=== PATIENT | male | born 1960 | race Caucasian/White ===

== ENCOUNTER → 2016-07-02 | Outpatient (REF) | payer MEDICAID ==
[2016-07-02 14:10] LABS: FREE T4 0.98 NG/DL (0.76-1.46); TOTAL PROTEIN 6.9 GM/DL (6.4-8.2)
[2016-07-02 14:18] LABS: FOLATE > 24.0 NG/ML; VITAMIN B12 LEVEL 375 PG/ML
[2016-07-04 12:44] LABS: ALBUMIN 4.26 GM/DL (3.29-5.55); ALBUMIN % 61.8 % (55.8-66.1); GAMMA GLOBULIN % 14.6 % (11.1-18.8)
== END ==
LOC: M LABNEURO 12:57
PROVIDERS: ATTEND Psychiatry & Neurology Neurology
DX: E11.42 Type 2 diabetes mellitus with diabetic polyneuropathy (principal); G56.03 Carpal tunnel syndrome, bilateral upper limbs; R20.2 Paresthesia of skin

== ENCOUNTER 2016-07-31 12:51 | Inpatient (IN) | payer MEDICAID ==
[~2016-07-31] VITALS: Ht 162.6 cm; Wt 80.2 kg
[2016-07-31] MEDS ORDERED: SYMB16INH (13:26)
[2016-07-31] MEDS ORDERED: RANI1TAB6 (13:26)
[2016-07-31] MEDS ORDERED: CELE1CAP9 (13:26)
[2016-07-31] MEDS ORDERED: VENL150C43 (13:26)
[2016-07-31] MEDS ORDERED: ALPRTAB4 (13:26)
[2016-07-31] MEDS ORDERED: ARIP2TAB (13:26)
[2016-07-31] MEDS ORDERED: ALBU17IN (13:26)
[2016-07-31] MEDS ORDERED: PENC1CR (13:26)
[2016-07-31] MEDS ORDERED: ZOLP10TA2 (13:26)
[2016-07-31] MEDS ORDERED: PREG50CA (13:26)
[2016-07-31 14:01] LABS: MEAN CORPUSCULAR HEMOGLOBIN 33.3 pg (27.0-33.0); MEAN CORPUSCULAR HGB CONC 34.1 g/dl (32.0-36.5); MEAN CORPUSCULAR VOLUME 97.7 fl (80.0-96.0); RED CELL DISTRIBUTION WIDTH 13.9 % (11.5-14.5); WHITE BLOOD COUNT 6.8 K/mm3 (4.0-10.0)
[2016-07-31 14:23] LABS: METHADONE URINE NEGATIVE (NEGATIVE)
[2016-07-31 14:35] LABS: ALBUMIN 3.7 GM/DL (3.2-5.2); ALBUMIN/GLOBULIN RATIO 1.09 (1.00-1.93); ALKALINE PHOSPHATASE 77 U/L (45-117); ALT/SGPT 42 U/L (12-78); ANION GAP 11 MEQ/L (8-16); AST/SGOT 43 U/L (15-37); BILIRUBIN,DIRECT 0.1 MG/DL (0.0-0.2); BILIRUBIN,TOTAL 0.4 MG/DL (0.2-1.0); BLOOD UREA NITROGEN 11 MG/DL (7-18); CALCIUM LEVEL 9.2 MG/DL (8.5-10.1); CARBON DIOXIDE LEVEL 26 MEQ/L (21-32); CHLORIDE LEVEL 105 MEQ/L (98-107); CREATININE FOR GFR 0.84 MG/DL (0.70-1.30); GLOMERULAR FILTRATION RATE > 60.0 (>56); GLUCOSE, FASTING 99 MG/DL (70-105); POTASSIUM SERUM 3.9 MEQ/L (3.5-5.1); SODIUM LEVEL 142 MEQ/L (136-145); TOTAL PROTEIN 7.1 GM/DL (6.4-8.2)
[2016-07-31] MEDS ORDERED: ABIL2TAB2 PO (16:19)
[2016-07-31] MEDS ORDERED: CELE-19 PO (16:19)
[2016-07-31] MEDS ORDERED: RANI150T PO (16:19)
[2016-07-31] MEDS ORDERED: AMBI10TA PO (16:19)
[2016-07-31] MEDS ORDERED: ALPR0.5T3 PO (16:19)
[2016-07-31] MEDS ORDERED: VENL150C43 PO (16:19)
[2016-07-31] MEDS ORDERED: PREG50CA PO (16:19)
[2016-07-31] MEDS ORDERED: ALBU17IN INH (16:19)
[2016-07-31] MEDS ORDERED: VITMTA PO (16:19)
[2016-07-31] MEDS ORDERED: SYMB16INH INH (16:19)
[2016-07-31 17:04] VITALS: BP 140/95
[2016-07-31] MEDS ORDERED: MOM 30ML SUSPENSION UDC PO PRN (18:45)
[2016-07-31] MEDS ORDERED: ALBUTEROL 90 MCG/ACT 8GM HFA INHALER INH PRN (18:45)
[2016-07-31] MEDS ORDERED: MAALOX 30 ML SUSP *UDC PO PRN (18:45)
[2016-07-31] MEDS: FAMOTIDINE 20 MG TAB PO SCH (21:06)
[2016-07-31] MEDS: ALPRAZolam 0.5 MG TAB PO SCH (21:06)
[2016-07-31] MEDS: zolPIDEM TARTRATE 10MG TAB PO PRN (21:06)
[2016-07-31] MEDS: SYMBICORT 160/4.5MCG INHALER 6GM INH SCH (21:06)
[2016-07-31] MEDS: PREGABALIN 50 MG CAP (LYRICA) PO SCH (21:06)
[2016-08-01 06:40] VITALS: BP 132/77
[2016-08-01] MEDS: ARIPiprazole 2 MG TAB PO SCH (08:31)
[2016-08-01] MEDS: VENLAFAXINE **XR** 75MG CAPSULE PO SCH (08:31)
[2016-08-01] MEDS: ALPRAZolam 0.5 MG TAB PO SCH ×3 (08:31→17:24)
[2016-08-01] MEDS: CelecoXIB (CeleBREX) 100 MG CAP PO SCH (08:31)
[2016-08-01] MEDS: SYMBICORT 160/4.5MCG INHALER 6GM INH SCH ×2 (08:31→22:18)
[2016-08-01] MEDS: MULTIVITAMINS/MINERALS THERAP 1 TAB PO SCH (08:32)
[2016-08-01] MEDS: PREGABALIN 50 MG CAP (LYRICA) PO SCH ×3 (08:33→22:18)
[2016-08-01] MEDS: NICOTINE 21MG/24HR 1 EA TRANSDERMAL TD SCH (08:33)
[2016-08-01] MEDS ORDERED: VENLAFAXINE 37.5 MG TAB PO SCH (09:00)
--- NOTE | 2016-08-01 10:35 | HPEPDOC ---
Medical History and Physical Date of Admission Jul 31, 2016 at 16:45 History and Physical PCP: Dr Cantu ATTENDING: Dr. Canelo Silvestre HPI:56yoM admitted to [facility] for unspecified depressive disorder, being medically examined today. No acute medical complaints today. Denies any fevers, chills, weakness, fatigue, CHE, CP, SOB, cough, palpitations, abdominal pain, N/V/D or changes in bowel or bladder habits. PMHx: Impaired fasting glucose GERD Asthma Peripheral neuropathy Chronic low back pain History of alcohol use History of substance use History of prostate cancer PSHX: Vasectomy Prostatectomy 02/05 Right inguinal hernia SOCHX: Resides in: [facility] Marital Status: Kids: 2, 1 Employment: Unemployed Tobacco use: One pack per day ETOH: Denies Illicit Drugs: Reports history of heroin overdose 1 IV Drug Use: Denies Tattoos done unprofessionally: Denies FAMHX: Mother: Alive, history of hypertension, diabetes Father: Alive, hypertension, diabetes Siblings: Alive, well Children: Alive, well. One child related to muscular dystrophy. Unexpected deaths due to medical reasons: None. ROS: As noted in HPI, otherwise 11pt ROS of systems reviewed and remarkable for chronic low back pain. Patient states his pain has been adequately controlled. He has had MRI of the lumbosacral spine through neurology and has been referred to [facility] [place]. He states his appointment is in the near future. PE: GEN: 56yoM, appears stated age. Well-nourished, well developed. No acute distress. Alert and oriented x 3. Pleasant, interactive. HEENT: Normocephalic, atraumatic. Pupils are equal, round, and reactive to light. Extraocular movements are intact. No nystagmus appreciated. Sclera are nonicteric. Conjunctiva without injection. Nose midline. Nasal turbinates without bogginess. EACs both patent BL. TMs both visualized and fonseca with good cone of light, no bulging or erythema. No facial asymmetry. Moist mucous membranes. Dentition fair. Pharynx pink and moist, no cobblestoning. Neck supple , trachea midline. No lymphadenopathy or thyromegaly appreciated. CHEST: Regular rate and rhythm, +S1, +S2 LUNGS: Clear to auscultation bilaterally. No wheezes, rales, or rhonchi. Breathing appears symmetric and easy. Patient is speaking in full sentences. No accessory muscle use. ABD: Round, soft, non-tender, non-distended. +Bowel sounds throughout. No rebound or guarding. No costovertebral angle tenderness. EXT: Pulses 2+ bilaterally dorsalis pedis and radial. No lower extremity edema appreciated. SKIN: [place], dry, warm. Capillary refill <2sec. No rashes. NEURO: Alert and oriented x 3. Cranial nerves III-XII are intact. No focal deficits appreciated. EKG: pending. A&P: 56yoM admitted to [facility] for unspecified depressive disorder 1. Psych. Plan per Psychiatry. Obtain baseline EKG to assure the safety of psychiatric medications as they can prolong the QT interval. 2. Nicotine dependence. Patch available. 3. Chronic low back pain. Continue Celebrex 200 mg daily. Continue Lyrica 50 mg 3 times a day. Patient has an upcoming appointment with [facility] [place] for an opinion regarding his chronic low back pain. Patient does not feel he needs to see pain management at this time. He states pain is adequately controlled on his outpatient regimen. 4. Follow up with PCP on discharge. 5. Asthma. Continue Symbicort 2 puffs twice a day, albuterol 2 puffs every 4 hours as needed. 6. GERD. Continue Pepcid 20 mg daily. 7. History of IFG. Fasting blood sugar noted to be 99 on admission. Hemoglobin A1c 07/02/16 is noted to be 5.8. 8. Elevated TSH. Recheck TSH and free T4 in a.m. 9. Elevated AST. Recheck CMP in a.m. 10. 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 Vital Signs Vital Signs Label Value Date Time Patient Temperature 96.3 degrees F 08/01/16 0640 Temperature Source Tympanic 08/01/16 0640 Pulse 65 08/01/16 0640 Respiratory Rate 16 bpm 08/01/16 0640 Blood Pressure Assessment 132/77 (95) 08/01/16 0640 Bedside Pulse Oximetry 96 % 07/31/16 1704 Item Value Date Time Oxygen Delivery Method Room Air 07/31/16 1704 Laboratory Data Labs 24H Laboratory Tests 2 07/31/16 13:44: Urine Amphetamines Screen NEGATIVE, Urine Benzodiazepines Screen POSITIVEH, Urine Opiates Screen NEGATIVE, Urine Barbiturates Screen NEGATIVE, Urine Cannabinoids Screen NEGATIVE, Urine Cocaine Metabolite Screen NEGATIVE, Urine Methadone Screen NEGATIVE, Urine Phencyclidine Screen NEGATIVE 07/31/16 13:45: Acetaminophen Level < 2.0L, Aspartate Amino Transf (AST/SGOT) 43H, Alanine Aminotransferase (ALT/SGPT) 42, Alkaline Phosphatase 77, Total Bilirubin 0.4, Direct Bilirubin 0.1, Albumin 3.7, Albumin/Globulin Ratio 1.09, Anion Gap 11, Calcium Level 9.2, Ethyl Alcohol Level 0.003, Glomerular Filtration Rate > 60.0 , Salicylates Level 2.1L, Thyroid Stimulating Hormone (TSH) 4.710H, Total Protein 7.1 CBC/BMP Laboratory Tests 07/31/16 13:45 Red Blood Count 4.30, Mean Corpuscular Volume 97.7 H, Mean Corpuscular Hemoglobin 33.3 H, Mean Corpuscular Hemoglobin Concent 34.1, Red Cell Distribution Width 13.9 Home Medications Scheduled Alprazolam (Alprazolam) 0.5 Mg Tab 0.5 MG PO QID Aripiprazole (Abilify) 2 Mg Tab 2 MG PO DAILY Budesonide/Formoterol (Symbicort 160-4.5 Mcg/Act) 60 Puff/Inhaler Aers 2 PUFF INH BID Celecoxib (Celebrex) 200 Mg Cap 200 MG PO DAILY Multivitamins *[facility] STOCKED* (Thera M Plus *[facility] STOCKED*) 1 Tab Tab 1 TAB PO DAILY Pregabalin (Lyrica) 50 Mg Cap 50 MG PO TID Venlafaxine Hydrochloride (Venlafaxine HCl ER) 150 Mg Cap 150 MG PO DAILY Scheduled PRN Albuterol Sulfate (Ventolin Hfa) 200 Puff/8 Gm Aers 2 PUFF INH QID PRN PRN SHORTNESS OF BREATH Ranitidine HCl (Ranitidine HCl) 150 Mg Tab 1 TAB PO DAILY PRN PRN HEARTBURN/ INDIGESTION Zolpidem Tartrate (Ambien) 10 Mg Tab 10 MG PO QHS PRN PRN SLEEP Allergies Coded Allergies: No Known Allergies (Unverified , 07/31/16) Shonna Hobbs Aug 01, 2016 10:35
[2016-08-01 11:45] VITALS: BP 140/90
[2016-08-01 18:00] VITALS: BP 150/96
[2016-08-01] MEDS ORDERED: chlordiazePOXIDE 25 MG CAP PO PRN (19:15)
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
[2016-08-01] MEDS ORDERED: ALPRAZolam 0.5 MG TAB PO SCH ×2 (21:00→22:00)
[2016-08-01] MEDS: FAMOTIDINE 20 MG TAB PO SCH (22:18)
[2016-08-02 07:04] VITALS: BP 141/77
[2016-08-02 07:47] LABS: ALBUMIN 3.6 GM/DL (3.2-5.2); ALBUMIN/GLOBULIN RATIO 1.13 (1.00-1.93); ALKALINE PHOSPHATASE 78 U/L (45-117); ALT/SGPT 41 U/L (12-78); ANION GAP 9 MEQ/L (8-16); AST/SGOT 32 U/L (15-37); BILIRUBIN,TOTAL 0.5 MG/DL (0.2-1.0); BLOOD UREA NITROGEN 13 MG/DL (7-18); CALCIUM LEVEL 8.6 MG/DL (8.5-10.1); CARBON DIOXIDE LEVEL 26 MEQ/L (21-32); CHLORIDE LEVEL 106 MEQ/L (98-107); CREATININE FOR GFR 0.85 MG/DL (0.70-1.30); FREE T4 0.79 NG/DL (0.76-1.46); GLOMERULAR FILTRATION RATE > 60.0 (>56); GLUCOSE, FASTING 106 MG/DL (70-105); POTASSIUM SERUM 4.3 MEQ/L (3.5-5.1); SODIUM LEVEL 141 MEQ/L (136-145); TOTAL PROTEIN 6.8 GM/DL (6.4-8.2)
[2016-08-02] MEDS: NICOTINE 21MG/24HR 1 EA TRANSDERMAL TD SCH (08:26)
[2016-08-02] MEDS: ARIPiprazole 2 MG TAB PO SCH (08:26)
[2016-08-02] MEDS: SYMBICORT 160/4.5MCG INHALER 6GM INH SCH ×2 (08:26→21:04)
[2016-08-02] MEDS: clonazePAM 1 MG TAB PO SCH ×4 (08:26→21:04)
[2016-08-02] MEDS: VENLAFAXINE **XR** 75MG CAPSULE PO SCH (08:27)
[2016-08-02] MEDS: MULTIVITAMINS/MINERALS THERAP 1 TAB PO SCH (08:27)
[2016-08-02] MEDS: CelecoXIB (CeleBREX) 100 MG CAP PO SCH (08:27)
[2016-08-02] MEDS: PREGABALIN 50 MG CAP (LYRICA) PO SCH ×3 (08:27→21:04)
[2016-08-02] MEDS ORDERED: chlordiazePOXIDE 25 MG CAP PO SCH (09:00)
[2016-08-02 11:30] VITALS: BP 142/84
--- NOTE | 2016-08-02 14:26 | ECGEPIP ---
Stationary ECG Study [facility] Test Date: 2016-08-01 Pat Name: CARLITA SAVAGE Department: Room: [place] [address] Gender: M Refuge Manager: LOIDA : 1960 Requested By: Shonna Hobbs Order Number: [id number] Reading MD: Madai Parnell Measurements Intervals [place] Rate: 68 P: 61 OK: 174 QRS: 90 QRSD: 92 T: 69 QT: 396 QTc: 422 Interpretive Statements SINUS RHYTHM NO PRIOR Electronically Signed On 08-02-2016 14:25:46 EST by Madai Parnell
[2016-08-02 18:00] VITALS: BP 138/88
[2016-08-02] MEDS: FAMOTIDINE 20 MG TAB PO SCH (21:04)
[2016-08-02] MEDS: zolPIDEM TARTRATE 10MG TAB PO PRN (21:04)
[2016-08-03 06:49] VITALS: BP 130/80
[2016-08-03] MEDS: SYMBICORT 160/4.5MCG INHALER 6GM INH SCH ×2 (08:22→20:24)
[2016-08-03] MEDS: PREGABALIN 50 MG CAP (LYRICA) PO SCH ×3 (08:22→20:24)
[2016-08-03] MEDS: NICOTINE 21MG/24HR 1 EA TRANSDERMAL TD SCH (08:22)
[2016-08-03] MEDS: clonazePAM 1 MG TAB PO SCH ×4 (08:22→20:24)
[2016-08-03] MEDS: ARIPiprazole 2 MG TAB PO SCH (08:23)
[2016-08-03] MEDS: VENLAFAXINE **XR** 75MG CAPSULE PO SCH (08:23)
[2016-08-03] MEDS: MULTIVITAMINS/MINERALS THERAP 1 TAB PO SCH (08:23)
[2016-08-03] MEDS: CelecoXIB (CeleBREX) 100 MG CAP PO SCH (08:23)
[2016-08-03 18:00] VITALS: BP 140/90
[2016-08-03] MEDS: QUEtiapine FUMARATE 50 MG TAB PO SCH (20:24)
[2016-08-03] MEDS: FAMOTIDINE 20 MG TAB PO SCH (20:24)
[2016-08-04 06:27] VITALS: BP 130/72
[2016-08-04] MEDS: MULTIVITAMINS/MINERALS THERAP 1 TAB PO SCH (08:10)
[2016-08-04] MEDS: SYMBICORT 160/4.5MCG INHALER 6GM INH SCH ×2 (08:10→21:02)
[2016-08-04] MEDS: CelecoXIB (CeleBREX) 100 MG CAP PO SCH (08:10)
[2016-08-04] MEDS: PREGABALIN 50 MG CAP (LYRICA) PO SCH ×3 (08:10→21:03)
[2016-08-04] MEDS: clonazePAM 1 MG TAB PO SCH ×3 (08:10→21:02)
[2016-08-04] MEDS: ARIPiprazole 2 MG TAB PO SCH (08:10)
[2016-08-04] MEDS: VENLAFAXINE **XR** 75MG CAPSULE PO SCH (08:10)
[2016-08-04] MEDS: NICOTINE 21MG/24HR 1 EA TRANSDERMAL TD SCH (08:11)
--- NOTE | 2016-08-04 12:06 | IPNPDOC ---
Subjective Date Seen The patient was seen on 08/04/16. Subjective Chief Complaint/HPI The patient is a 56-year-old male admitted with a reason for visit of Unspecified Depressive Disorder. Events since last encounter No new issues. Objective Physical Examination General Exam: Positive: Alert Eye Exam: Positive: PERRLA ENT Exam: Positive: Atraumatic Skin Exam: Positive: Nl turgor and temperature Psych Exam: Positive: Oriented x 3 Assessment /Plan Problems (1) Chronic low back pain Status: Chronic Response to Treatment: Stable Problem Text: * Pt remains on Celebrex 200mg daily * Lyrica 50mg TID * [facility] accessed reference # [id number] RX as per Dr Frank #90 06/28/16. * Per pt pain is controlled on current regimen, pt states this again today. * Has appt with [facility] in near future for opinion re chronic LBP. * Attending provider requests Pain Mgmt consultation for opinion re his pain regimen. Clt pending. (2) Tobacco use Status: Chronic Problem Text: * nicoderm (3) Asthma Status: Chronic Response to Treatment: Stable Problem Text: * Symbicort * Albuterol prn. (4) Peripheral neuropathy Status: Chronic Response to Treatment: Stable Problem Text: * Controlled per pt with Lyrica at present dose. * Has tried Gabapentin in the past which he states was ineffective. Plan/VTE VTE Prophylaxis Ordered?: No (ambulatory) VS, I&O, 24H, Fishbone Vital Signs/I&O Vital Signs Date Time Temp Pulse Resp B/P Pulse Ox O2 Delivery O2 Flow Rate FiO2 08/04/16 06:27 96.4 65 16 130/72 07/31/16 17:04 96 Room Air Shonna Hobbs Aug 04, 2016 12:06
[2016-08-04] MEDS: ACETAMINOPHEN TAB 650MG DOSE (2X325MG) PO PRN ×2 (12:31→21:04)
--- NOTE | 2016-08-04 15:17 | IPNPDOC ---
[facility] Progress Note Progress Note DATE OF SERVICE: 08/04/16 HISTORY: Patient is voluntary admission, indicates he has had intermittent suicidal ideation since 2008 and has been struggling with depression and anxiety since 1990, notes symptoms were exacerbated by son's last week, notes today would've been son's birthday. Patient is currently active with a therapist and a prescriber through [facility] and was taking a medication regimen consisting of Abilify, Effexor XR, Xanax 4 times per day, Lyrica, and Ambien as needed for sleep, has notable history of medication noncompliance. Weekend provider changed Ambien to Seroquel for sleep, patient indicates that change is effective and prefers Seroquel. Xanax has been changed to Klonopin with taper in place and patient indicates taper is going "fine, no problems," remains in agreement with taper. Pain management consult was requested date of entry to evaluate patient's use of Lyrica. Patient indicates rest of current medication regimen remains effective and denies medication side effects. Patient reports current anxiety level of 3/10, depression 6/10 which she attributes to his son's recent and today being his birthdate, denies suicidal and homicidal ideation, denies audiovisual hallucinations, denies urge to engage in self-injurious behavior. Patient reports reduced irritability and impulsivity, states he feels his mood is "more level." Patient states he spoke with his ex- over the phone over weekend describing the conversation as "cordial," states he has been reading information on grief and men and depression. Patient has been visible, attending groups, and indicates it a programming has been helpful in the development of coping mechanisms, denies symptoms of craving or withdrawal, describes energy level as "still low," reports ongoing challenges with concentration and focus, describes his appetite is stable. Patient presents with no signs of acute distress at time of interaction. VITAL SIGNS: See below. NEW TEST RESULTS: No new results. Labs on admission indicated elevated MCV, MCH , AST, TSH. TSH recheck on 08/02/16 remains elevated, subclinical, PA has evaluated and is recommending outpatient follow up post discharge. Impaired fasting glucose, GERD, asthma, peripheral neuropathy, chronic low back pain, history of prostate cancer with prostatectomy, right inguinal hernia, vasectomy. UDS positive for benzodiazepines on admission 08/01/16 EKG SINUS RHYTHM NO PRIOR CURRENT MEDICATIONS: See below. MENTAL STATUS EXAMINATION: Patient is a 56-year-old male, father of 2 children, 1 recently , presents with improved personal hygiene, is dressed in own clothing, makes improved eye contact, ambulates with steady gait , appears stated age. Speech: Is of normal rate, rhythm, volume, spontaneous. Language skills are intact. Thought processes: Clear, goal-directed. Thought content: Rational, logical. Abstract reasoning: Appears intact Description of associations: Less tangential, remains easily redirected. Description of abnormal or psychotic thoughts: denies hallucinations, delusions , preoccupation with violence, homicidal or suicidal ideation, and obsessions]. Judgment: Limited, some improvement Insight: Limited, some improvement Orientation to time, place and person. Recent and remote memory: Appears intact Attention span and concentration: Limited. Language: Within normal limits. Fund of knowledge: Appears adequate. Mood: "Today would've been my son's birthday so that sad." Patient appears depressed, less anxious, no mood lability noted. Affect: Blunted, brightens 1 when talking about son, congruent with affect. DIAGNOSES: Major depressive disorder, recurrent, moderate, bereavement, rule out bipolar disorder, rule out ashley, rule out PTSD ASSESSMENT: Patient appears to be adjusting to unit, has been more visible, attending groups, engaging selectively but appropriately with peers and utilizing staff for support appropriately. Patient indicates he is satisfied with recent changes to medications and remains in agreement with Klonopin taper , denies any symptoms of the discomfort related to taper and denies medication side effects. Patient denies suicidal and homicidal ideation and verbalizes awareness of how to access supportive services on the unit if needed. Will continue to monitor patient's response to benzodiazepine taper and medications, monitor for medication side effects, and evaluate patient safety, resolution of suicidal ideation, and discharge readiness. When prepared for discharge patient states he would like to resume outpatient behavioral health services through [facility] for psychotherapy and medication management, adds he is also interested in a referral for [facility] housing and case management services. MANAGEMENT PLAN: Continue Klonopin taper, reduce Klonopin to 1 mg po TID. continue Seroquel 50 mg po hs, continue Effexor XR 150 mg po q am, continue Abilify 2 mg po q am Pain management consult requested to evaluate patient's use of Lyrica Maintain safety precautions Patient to attend groups and participate in unit programming to develop coping strategies Engage patient in discharge planning process and arrange meeting with support system to ensure safe discharge planning when appropriate Patient to follow up with PCM upon discharge TIME SPENT: 35 minutes. Vital Signs Vital Signs Date Time Temp Pulse Resp B/P Pulse Ox O2 Delivery O2 Flow Rate FiO2 08/04/16 06:27 96.4 65 16 130/72 07/31/16 17:04 96 Room Air Current Medications Current Medications Acetaminophen (Tylenol Tab) 650 mg Q6HP PRN PO HEADACHE or DISCOMFORT Last administered on 08/04/16 12:31; Start 07/31/16 at 18:45; Stop 08/30/16 at 18:44 Al Hydrox/Mg Hydrox/Simethicone (Mylanta) 30 ml Q4HP PRN PO HEARTBURN/ INDIGESTION; Start 07/31/16 at 18:45; Stop 08/30/16 at 18:44 Albuterol Sulfate (Proventil, Ventolin Hfa) 2 puff Q6HP PRN INH SHORTNESS OF BREATH; Start 07/31/16 at 18:45; Stop 08/30/16 at 18:44 Alprazolam (Xanax) 0.5 mg QID PO Last administered on 08/01/16 22:18; Start at 21:00; Stop 08/01/16 at 22:00; Status DC Alprazolam (Xanax) 0.5 mg QID PO ; Start 08/01/16 at 22:00; Stop 08/01/16 at 22: 00; Status DC Alprazolam (Xanax) 0.5 mg QID PO Last administered on 08/01/16 17:24; Start at 21:00; Stop 08/01/16 at 18:53; Status DC Aripiprazole (AbiLIFY) 2 mg DAILY PO Last administered on 08/04/16 08:10; Start 08/01/16 at 09:00; Stop 08/31/16 at 08:59 Budesonide/ Formoterol Fumarate (Symbicort 160/ 4.5mcg) 2 puff BID INH Last administered on 08/04/16 08:10; Start 07/31/16 at 21:00; Stop 08/30/16 at 20:59 Celecoxib (CeleBREX) 200 mg DAILY PO Last administered on 08/04/16 08:10; Start 08/01/16 at 09:00; Stop 08/31/16 at 08:59 Chlordiazepoxide (Librium) 25 mg TID PO ; Start 08/02/16 at 09:00; Stop at 09:00; Status DC Chlordiazepoxide (Librium) 25 mg TID PRN PO BENZO WITHDRAWAL; Start 08/01/16 at 19:15; Stop 08/01/16 at 19:48; Status DC Clonazepam (KlonoPIN) 1 mg QID PO Last administered on 08/04/16 12:29; Start 08/02/16 at 09:00; Stop 08/04/16 at 15:13; Status DC Clonazepam (KlonoPIN) 1 mg TID PO ; Start 08/04/16 at 21:00; Stop 08/11/16 at 20 :59 Famotidine (Pepcid) 20 mg QHS PO Last administered on 08/03/16 20:24; Start at 21:00; Stop 08/30/16 at 20:59 Home Med (Med Rec Complete!) ASDIRECTED XX ; Start 07/31/16 at 16:30; Stop at 16:30; Status DC Magnesium Hydroxide (Milk Of Magnesia) 30 ml DAILYPRN PRN PO CONSTIPATION; Start 07/31/16 at 18:45; Stop 08/30/16 at 18:44 Multivitamins (Theragram-M) 1 tab DAILY PO Last administered on 08/04/16 08:10 ; Start 08/01/16 at 09:00; Stop 08/31/16 at 08:59 Nicotine (Nicoderm Cq 21mg) 1 patch DAILY TD Last administered on 08/04/16 08: 11; Start 08/01/16 at 09:00; Stop 08/31/16 at 08:59 Pregabalin (Lyrica) 50 mg TID PO Last administered on 08/04/16 08:10; Start at 21:00; Stop 08/07/16 at 20:59 Quetiapine Fumarate (SEROquel) 50 mg QHS PO Last administered on 08/03/16 20: 24; Start 08/03/16 at 21:00; Stop 09/02/16 at 20:59 Venlafaxine HCl (Effexor Xr) 150 mg DAILY PO Last administered on 08:10; Start 08/01/16 at 09:00; Stop 08/31/16 at 08:59 Venlafaxine HCl (Effexor) 150 mg DAILY PO ; Start 08/01/16 at 09:00; Stop at 09:00; Status DC Zolpidem Tartrate (Ambien) 10 mg QHSP PRN PO INSOMNIA Last administered on 08/02 21:04; Start 07/31/16 at 18:45; Stop 08/02/16 at 22:14; Status DC Allergies Coded Allergies: No Known Allergies (Unverified , 07/31/16) Jyoti Shine Aug 04, 2016 15:17 Date Time Temp Pulse Resp B/P Pulse Ox O2 Delivery O2 Flow Rate FiO2 08/04/16 06:27 96.4 65 16 130/72 07/31/16 17:04 96 Room Air Current Medications Current Medications Acetaminophen (Tylenol Tab) 650 mg Q6HP PRN PO HEADACHE or DISCOMFORT Last administered on 08/04/16 12:31; Start 07/31/16 at 18:45; Stop 08/30/16 at 18:44 Al Hydrox/Mg Hydrox/Simethicone (Mylanta) 30 ml Q4HP PRN PO HEARTBURN/ INDIGESTION; Start 07/31/16 at 18:45; Stop 08/30/16 at 18:44 Albuterol Sulfate (Proventil, Ventolin Hfa) 2 puff Q6HP PRN INH SHORTNESS OF BREATH; Start 07/31/16 at 18:45; Stop 08/30/16 at 18:44 Alprazolam (Xanax) 0.5 mg QID PO Last administered on 08/01/16 22:18; Start at 21:00; Stop 08/01/16 at 22:00; Status DC Alprazolam (Xanax) 0.5 mg QID PO ; Start 08/01/16 at 22:00; Stop 08/01/16 at 22: 00; Status DC Alprazolam (Xanax) 0.5 mg QID PO Last administered on 08/01/16 17:24; Start at 21:00; Stop 08/01/16 at 18:53; Status DC Aripiprazole (AbiLIFY) 2 mg DAILY PO Last administered on 08/04/16 08:10; Start 08/01/16 at 09:00; Stop 08/31/16 at 08:59 Budesonide/ Formoterol Fumarate (Symbicort 160/ 4.5mcg) 2 puff BID INH Last administered on 08/04/16 08:10; Start 07/31/16 at 21:00; Stop 08/30/16 at 20:59 Celecoxib (CeleBREX) 200 mg DAILY PO Last administered on 08/04/16 08:10; Start 08/01/16 at 09:00; Stop 08/31/16 at 08:59 Chlordiazepoxide (Librium) 25 mg TID PO ; Start 08/02/16 at 09:00; Stop at 09:00; Status DC Chlordiazepoxide (Librium) 25 mg TID PRN PO BENZO WITHDRAWAL; Start 08/01/16 at 19:15; Stop 08/01/16 at 19:48; Status DC Clonazepam (KlonoPIN) 1 mg QID PO Last administered on 08/04/16 12:29; Start 08/02/16 at 09:00; Stop 08/04/16 at 15:13; Status DC Clonazepam (KlonoPIN) 1 mg TID PO ; Start 08/04/16 at 21:00; Stop 08/11/16 at 20 :59 Famotidine (Pepcid) 20 mg QHS PO Last administered on 08/03/16 20:24; Start at 21:00; Stop 08/30/16 at 20:59 Home Med (Med Rec Complete!) ASDIRECTED XX ; Start 07/31/16 at 16:30; Stop at 16:30; Status DC Magnesium Hydroxide (Milk Of Magnesia) 30 ml DAILYPRN PRN PO CONSTIPATION; Start 07/31/16 at 18:45; Stop 08/30/16 at 18:44 Multivitamins (Theragram-M) 1 tab DAILY PO Last administered on 08/04/16 08:10 ; Start 08/01/16 at 09:00; Stop 08/31/16 at 08:59 Nicotine (Nicoderm Cq 21mg) 1 patch DAILY TD Last administered on 08/04/16 08: 11; Start 08/01/16 at 09:00; Stop 08/31/16 at 08:59 Pregabalin (Lyrica) 50 mg TID PO Last administered on 08/04/16 08:10; Start at 21:00; Stop 08/07/16 at 20:59 Quetiapine Fumarate (SEROquel) 50 mg QHS PO Last administered on 08/03/16 20: 24; Start 08/03/16 at 21:00; Stop 09/02/16 at 20:59 Venlafaxine HCl (Effexor Xr) 150 mg DAILY PO Last administered on 08:10; Start 08/01/16 at 09:00; Stop 08/31/16 at 08:59 Venlafaxine HCl (Effexor) 150 mg DAILY PO ; Start 08/01/16 at 09:00; Stop at 09:00; Status DC Zolpidem Tartrate (Ambien) 10 mg QHSP PRN PO INSOMNIA Last administered on 08/02 21:04; Start 07/31/16 at 18:45; Stop 08/02/16 at 22:14; Status DC Allergies Coded Allergies: No Known Allergies (Unverified , 07/31/16) Jyoti Shine Aug 04, 2016 15:17 Current Medications Current Medications Acetaminophen (Tylenol Tab) 650 mg Q6HP PRN PO HEADACHE or DISCOMFORT Last administered on 08/04/16 12:31; Start 07/31/16 at 18:45; Stop 08/30/16 at 18:44 Al Hydrox/Mg Hydrox/Simethicone (Mylanta) 30 ml Q4HP PRN PO HEARTBURN/ INDIGESTION; Start 07/31/16 at 18:45; Stop 08/30/16 at 18:44 Albuterol Sulfate (Proventil, Ventolin Hfa) 2 puff Q6HP PRN INH SHORTNESS OF BREATH; Start 07/31/16 at 18:45; Stop 08/30/16 at 18:44 Alprazolam (Xanax) 0.5 mg QID PO Last administered on 08/01/16 22:18; Start at 21:00; Stop 08/01/16 at 22:00; Status DC Alprazolam (Xanax) 0.5 mg QID PO ; Start 08/01/16 at 22:00; Stop 08/01/16 at 22: 00; Status DC Alprazolam (Xanax) 0.5 mg QID PO Last administered on 08/01/16 17:24; Start at 21:00; Stop 08/01/16 at 18:53; Status DC Aripiprazole (AbiLIFY) 2 mg DAILY PO Last administered on 08/04/16 08:10; Start 08/01/16 at 09:00; Stop 08/31/16 at 08:59 Budesonide/ Formoterol Fumarate (Symbicort 160/ 4.5mcg) 2 puff BID INH Last administered on 08/04/16 08:10; Start 07/31/16 at 21:00; Stop 08/30/16 at 20:59 Celecoxib (CeleBREX) 200 mg DAILY PO Last administered on 08/04/16 08:10; Start 08/01/16 at 09:00; Stop 08/31/16 at 08:59 Chlordiazepoxide (Librium) 25 mg TID PO ; Start 08/02/16 at 09:00; Stop at 09:00; Status DC Chlordiazepoxide (Librium) 25 mg TID PRN PO BENZO WITHDRAWAL; Start 08/01/16 at 19:15; Stop 08/01/16 at 19:48; Status DC Clonazepam (KlonoPIN) 1 mg QID PO Last administered on 08/04/16 12:29; Start 08/02/16 at 09:00; Stop 08/04/16 at 15:13; Status DC Clonazepam (KlonoPIN) 1 mg TID PO ; Start 08/04/16 at 21:00; Stop 08/11/16 at 20 :59 Famotidine (Pepcid) 20 mg QHS PO Last administered on 08/03/16 20:24; Start at 21:00; Stop 08/30/16 at 20:59 Home Med (Med Rec Complete!) ASDIRECTED XX ; Start 07/31/16 at 16:30; Stop at 16:30; Status DC Magnesium Hydroxide (Milk Of Magnesia) 30 ml DAILYPRN PRN PO CONSTIPATION; Start 07/31/16 at 18:45; Stop 08/30/16 at 18:44 Multivitamins (Theragram-M) 1 tab DAILY PO Last administered on 08/04/16 08:10 ; Start 08/01/16 at 09:00; Stop 08/31/16 at 08:59 Nicotine (Nicoderm Cq 21mg) 1 patch DAILY TD Last administered on 08/04/16 08: 11; Start 08/01/16 at 09:00; Stop 08/31/16 at 08:59 Pregabalin (Lyrica) 50 mg TID PO Last administered on 08/04/16 08:10; Start at 21:00; Stop 08/07/16 at 20:59 Quetiapine Fumarate (SEROquel) 50 mg QHS PO Last administered on 08/03/16 20: 24; Start 08/03/16 at 21:00; Stop 09/02/16 at 20:59 Venlafaxine HCl (Effexor Xr) 150 mg DAILY PO Last administered on 08:10; Start 08/01/16 at 09:00; Stop 08/31/16 at 08:59 Venlafaxine HCl (Effexor) 150 mg DAILY PO ; Start 08/01/16 at 09:00; Stop at 09:00; Status DC Zolpidem Tartrate (Ambien) 10 mg QHSP PRN PO INSOMNIA Last administered on 08/02 21:04; Start 07/31/16 at 18:45; Stop 08/02/16 at 22:14; Status DC Allergies Coded Allergies: No Known Allergies (Unverified , 07/31/16) Jyoti Shine Aug 04, 2016 15:17
[2016-08-04 18:00] VITALS: BP 145/77
[2016-08-04] MEDS: FAMOTIDINE 20 MG TAB PO SCH (21:02)
[2016-08-04] MEDS: QUEtiapine FUMARATE 50 MG TAB PO SCH (21:03)
[2016-08-05 06:38] VITALS: BP 118/66
[2016-08-05] MEDS: SYMBICORT 160/4.5MCG INHALER 6GM INH SCH ×2 (08:52→21:05)
[2016-08-05] MEDS: NICOTINE 21MG/24HR 1 EA TRANSDERMAL TD SCH (08:53)
[2016-08-05] MEDS: VENLAFAXINE **XR** 75MG CAPSULE PO SCH (08:53)
[2016-08-05] MEDS: CelecoXIB (CeleBREX) 100 MG CAP PO SCH (08:53)
[2016-08-05] MEDS: MULTIVITAMINS/MINERALS THERAP 1 TAB PO SCH (08:53)
[2016-08-05] MEDS: clonazePAM 1 MG TAB PO SCH ×3 (08:53→21:07)
[2016-08-05] MEDS: PREGABALIN 50 MG CAP (LYRICA) PO SCH ×3 (08:53→21:07)
[2016-08-05] MEDS: ARIPiprazole 2 MG TAB PO SCH (08:53)
--- NOTE | 2016-08-05 17:58 | IPNPDOC ---
[facility] Progress Note Progress Note DATE OF SERVICE: 08/05/16 HISTORY: Patient is voluntary admission, indicates he has had intermittent suicidal ideation since 2008 and has been struggling with depression and anxiety since 1990, notes symptoms were exacerbated by son's last week, yesterday would have been son's birthday. Patient is currently active with a therapist and a prescriber through [facility] and was taking a medication regimen consisting of Abilify, Effexor XR, Xanax 4 times per day, Lyrica, and Ambien as needed for sleep, has notable history of medication noncompliance. Weekend provider changed Ambien to Seroquel for sleep, patient indicates that change is effective and prefers Seroquel. Xanax has been changed to Klonopin with taper in place and patient indicates taper is going well, denies symptoms of craving or withdrawal and remains in agreement with taper. Pain management consult has been requested to evaluate patient's use of Lyrica. Patient indicates rest of current medication regimen remains effective and denies medication side effects. Patient reports current anxiety level of 2/10, depression 4/10 which he attributes to his son's recent , denies suicidal and homicidal ideation, denies audiovisual hallucinations, denies urge to engage in self-injurious behavior. Patient reports reduced irritability and impulsivity, states he feels his mood continues to be leveling out. Patient has been in communication with his ex- over the phone over and states he feels communication has been positive. Patient continues to process symptoms of grief and bereavement, has been visible on the unit, attending groups, and indicates unit programming remains helpful in the development of coping mechanisms. Patient indicates energy level is improving, reports ongoing challenges with concentration and focus, indicates appetite is stable. Patient presents with no signs of acute distress at time of interaction. VITAL SIGNS: See below. NEW TEST RESULTS: No new results. Labs on admission indicated elevated MCV, MCH , AST, TSH. TSH recheck on 08/02/16 remains elevated, subclinical, PA has evaluated and is recommending outpatient follow up post discharge. Impaired fasting glucose, GERD, asthma, peripheral neuropathy, chronic low back pain, history of prostate cancer with prostatectomy, right inguinal hernia, vasectomy. UDS positive for benzodiazepines on admission 08/01/16 EKG SINUS RHYTHM NO PRIOR CURRENT MEDICATIONS: See below. MENTAL STATUS EXAMINATION: Patient is a 56-year-old male, father of 2 children, 1 recently , presents with improved personal hygiene, is dressed in own clothing, makes improved eye contact, ambulates with steady gait , appears stated age. Speech: Is of normal rate, rhythm, volume, spontaneous. Language skills are intact. Thought processes: Clear, goal-directed. Thought content: Rational, logical. Abstract reasoning: Appears intact Description of associations: Less tangential, remains easily redirected. Description of abnormal or psychotic thoughts: denies hallucinations, delusions , preoccupation with violence, homicidal or suicidal ideation, and obsessions]. Judgment: Limited, some improvement Insight: Limited, some improvement Orientation to time, place and person. Recent and remote memory: Appears intact Attention span and concentration: Limited. Language: Within normal limits. Fund of knowledge: Appears adequate. Mood: "I'm feeling okay with my treatment today." Patient appears less depressed , less anxious, no mood lability noted. Affect: Constricted, brightens 1, congruent with affect. DIAGNOSES: Major depressive disorder, recurrent, moderate, bereavement, rule out bipolar disorder, rule out ashley, rule out PTSD ASSESSMENT: Patient appears to be adjusting to unit, has been more visible, attending groups, engaging selectively but appropriately with peers and utilizing staff for support appropriately. Patient indicates he is satisfied with recent changes to medications and remains in agreement with Klonopin taper , denies any symptoms of the discomfort related to taper and denies medication side effects. Patient denies suicidal and homicidal ideation and verbalizes awareness of how to access supportive services on the unit if needed. Will continue to monitor patient's response to benzodiazepine taper and medications, monitor for medication side effects, and evaluate patient safety, resolution of suicidal ideation, and discharge readiness. When prepared for discharge patient states he would like to resume outpatient behavioral health services through [facility] for psychotherapy and medication management, adds he is also interested in a referral for [facility] housing and case management services. MANAGEMENT PLAN: Continue Klonopin taper, reduce Klonopin to 1 mg po BID. continue Seroquel 50 mg po hs, continue Effexor XR 150 mg po q am, continue Abilify 2 mg po q am Pain management consult requested to evaluate patient's use of Lyrica Maintain safety precautions Patient to attend groups and participate in unit programming to develop coping strategies Engage patient in discharge planning process and arrange meeting with support system to ensure safe discharge planning when appropriate Patient to follow up with PCM upon discharge TIME SPENT: 35 minutes. Vital Signs Vital Signs Date Time Temp Pulse Resp B/P Pulse Ox O2 Delivery O2 Flow Rate FiO2 08/05/16 06:38 96.2 55 18 118/66 07/31/16 17:04 96 Room Air Current Medications Current Medications Acetaminophen (Tylenol Tab) 650 mg Q6HP PRN PO HEADACHE or DISCOMFORT Last administered on 08/04/16 21:04; Start 07/31/16 at 18:45; Stop 08/30/16 at 18:44 Al Hydrox/Mg Hydrox/Simethicone (Mylanta) 30 ml Q4HP PRN PO HEARTBURN/ INDIGESTION; Start 07/31/16 at 18:45; Stop 08/30/16 at 18:44 Albuterol Sulfate (Proventil, Ventolin Hfa) 2 puff Q6HP PRN INH SHORTNESS OF BREATH; Start 07/31/16 at 18:45; Stop 08/30/16 at 18:44 Alprazolam (Xanax) 0.5 mg QID PO Last administered on 08/01/16 22:18; Start at 21:00; Stop 08/01/16 at 22:00; Status DC Alprazolam (Xanax) 0.5 mg QID PO ; Start 08/01/16 at 22:00; Stop 08/01/16 at 22: 00; Status DC Alprazolam (Xanax) 0.5 mg QID PO Last administered on 08/01/16 17:24; Start at 21:00; Stop 08/01/16 at 18:53; Status DC Aripiprazole (AbiLIFY) 2 mg DAILY PO Last administered on 08/05/16 08:53; Start 08/01/16 at 09:00; Stop 08/31/16 at 08:59 Budesonide/ Formoterol Fumarate (Symbicort 160/ 4.5mcg) 2 puff BID INH Last administered on 08/05/16 08:52; Start 07/31/16 at 21:00; Stop 08/30/16 at 20:59 Celecoxib (CeleBREX) 200 mg DAILY PO Last administered on 08/05/16 08:53; Start 08/01/16 at 09:00; Stop 08/31/16 at 08:59 Chlordiazepoxide (Librium) 25 mg TID PO ; Start 08/02/16 at 09:00; Stop at 09:00; Status DC Chlordiazepoxide (Librium) 25 mg TID PRN PO BENZO WITHDRAWAL; Start 08/01/16 at 19:15; Stop 08/01/16 at 19:48; Status DC Clonazepam (KlonoPIN) 1 mg QID PO Last administered on 08/04/16 12:29; Start 08/02/16 at 09:00; Stop 08/04/16 at 15:13; Status DC Clonazepam (KlonoPIN) 1 mg TID PO Last administered on 08/05/16 15:17; Start 08/04/16 at 21:00; Stop 08/11/16 at 20:59 Famotidine (Pepcid) 20 mg QHS PO Last administered on 08/04/16 21:02; Start at 21:00; Stop 08/30/16 at 20:59 Home Med (Med Rec Complete!) ASDIRECTED XX ; Start 07/31/16 at 16:30; Stop at 16:30; Status DC Magnesium Hydroxide (Milk Of Magnesia) 30 ml DAILYPRN PRN PO CONSTIPATION; Start 07/31/16 at 18:45; Stop 08/30/16 at 18:44 Multivitamins (Theragram-M) 1 tab DAILY PO Last administered on 08/05/16 08:53 ; Start 08/01/16 at 09:00; Stop 08/31/16 at 08:59 Nicotine (Nicoderm Cq 21mg) 1 patch DAILY TD Last administered on 08/05/16 08: 53; Start 08/01/16 at 09:00; Stop 08/31/16 at 08:59 Pregabalin (Lyrica) 50 mg TID PO Last administered on 08/05/16 15:17; Start at 21:00; Stop 08/07/16 at 20:59 Quetiapine Fumarate (SEROquel) 50 mg QHS PO Last administered on 08/04/16 21: 03; Start 08/03/16 at 21:00; Stop 09/02/16 at 20:59 Venlafaxine HCl (Effexor Xr) 150 mg DAILY PO Last administered on 08:53; Start 08/01/16 at 09:00; Stop 08/31/16 at 08:59 Venlafaxine HCl (Effexor) 150 mg DAILY PO ; Start 08/01/16 at 09:00; Stop at 09:00; Status DC Zolpidem Tartrate (Ambien) 10 mg QHSP PRN PO INSOMNIA Last administered on 08/02 21:04; Start 07/31/16 at 18:45; Stop 08/02/16 at 22:14; Status DC Allergies Coded Allergies: No Known Allergies (Unverified , 07/31/16) Jyoti Shine Aug 05, 2016 17:58
[2016-08-05 18:00] VITALS: BP 129/76
[2016-08-05] MEDS: QUEtiapine FUMARATE 50 MG TAB PO SCH (21:07)
[2016-08-05] MEDS: FAMOTIDINE 20 MG TAB PO SCH (21:07)
[2016-08-05] MEDS: ACETAMINOPHEN TAB 650MG DOSE (2X325MG) PO PRN (21:08)
[2016-08-06 06:00] VITALS: BP 118/70
[2016-08-06] MEDS: PREGABALIN 50 MG CAP (LYRICA) PO SCH ×3 (08:30→21:05)
[2016-08-06] MEDS: VENLAFAXINE **XR** 75MG CAPSULE PO SCH (08:30)
[2016-08-06] MEDS: MULTIVITAMINS/MINERALS THERAP 1 TAB PO SCH (08:30)
[2016-08-06] MEDS: SYMBICORT 160/4.5MCG INHALER 6GM INH SCH ×2 (08:31→21:05)
[2016-08-06] MEDS: ARIPiprazole 2 MG TAB PO SCH (08:31)
[2016-08-06] MEDS: CelecoXIB (CeleBREX) 100 MG CAP PO SCH (08:31)
[2016-08-06] MEDS: clonazePAM 1 MG TAB PO SCH ×2 (08:31→21:05)
[2016-08-06] MEDS: NICOTINE 21MG/24HR 1 EA TRANSDERMAL TD SCH (08:33)
[2016-08-06] MEDS: ACETAMINOPHEN TAB 650MG DOSE (2X325MG) PO PRN (14:26)
[2016-08-06 18:00] VITALS: BP 134/76
--- NOTE | 2016-08-06 18:58 | IPNPDOC ---
[facility] Progress Note Progress Note DATE OF SERVICE: 08/06/16 HISTORY: Patient is voluntary admission, indicates he has had intermittent suicidal ideation since 2008 and has been struggling with depression and anxiety since 1990, notes symptoms were exacerbated by son's last week, recently observed anniversary of son's birthday. Patient has notable history of medication noncompliance. Weekend provider changed Ambien to Seroquel for sleep, patient indicates that change remains effective and prefers Seroquel. Xanax has been changed to Klonopin with taper in place and patient indicates taper is going well, denies symptoms of craving or withdrawal and remains in agreement with taper. Pain management consult has been requested to evaluate patient's use of Lyrica. Patient indicates rest of current medication regimen remains effective and denies medication side effects. Patient reports current anxiety level of 5/10, depression 7/10 which he attributes to his son's recent , planning for purchase of headstone. Patient denies suicidal and homicidal ideation, denies audiovisual hallucinations, denies urge to engage in self-injurious behavior. Patient reports reduced irritability and impulsivity, states he feels his mood is level. Patient remains in communication with his ex- over the phone over and states he feels communication has been positive. Patient continues to process symptoms of grief and bereavement, has been visible on the unit, attending groups, and indicates unit programming remains helpful in the development of coping mechanisms. Patient indicates energy level is improving, reports ongoing challenges with concentration and focus, indicates appetite is improving, adds he has been sleeping well. Patient presents with no signs of acute distress at time of interaction. VITAL SIGNS: See below. NEW TEST RESULTS: No new results. Labs on admission indicated elevated MCV, MCH , AST, TSH. TSH recheck on 08/02/16 remains elevated, subclinical, PA has evaluated and is recommending outpatient follow up post discharge. Impaired fasting glucose, GERD, asthma, peripheral neuropathy, chronic low back pain, history of prostate cancer with prostatectomy, right inguinal hernia, vasectomy. UDS positive for benzodiazepines on admission 08/01/16 EKG SINUS RHYTHM NO PRIOR CURRENT MEDICATIONS: See below. MENTAL STATUS EXAMINATION: Patient is a 56-year-old male, father of 2 children, 1 recently , presents with improved personal hygiene, is dressed in own clothing, makes improved eye contact, ambulates with steady gait , appears stated age. Speech: Is of normal rate, rhythm, volume, spontaneous. Language skills are intact. Thought processes: Clear, goal-directed. Thought content: Rational, logical. Abstract reasoning: Appears intact Description of associations: Less tangential, remains easily redirected. Description of abnormal or psychotic thoughts: denies hallucinations, delusions , preoccupation with violence, homicidal or suicidal ideation, and obsessions. Judgment: Fair, continues to improve Insight: Fair, continues to improve Orientation to time, place and person. Recent and remote memory: Appears intact Attention span and concentration: Limited. Language: Within normal limits. Fund of knowledge: Appears adequate. Mood: "I'm okay, I'm grieving but I'm ok." Patient appears less depressed, less anxious, no mood lability noted. Affect: Constricted, brightens 1, congruent with affect. DIAGNOSES: Major depressive disorder, recurrent, moderate, bereavement, rule out bipolar disorder, rule out ashley, rule out PTSD ASSESSMENT: Patient appears to be adjusting to unit, has been more visible, attending groups, engaging selectively but appropriately with peers and utilizing staff for support appropriately. Patient declines Effexor XR dosing adjustment at this time. Patient indicates he is satisfied with recent changes to medications and remains in agreement with Klonopin taper, denies any symptoms of the discomfort related to taper and denies medication side effects. Patient denies suicidal and homicidal ideation and verbalizes awareness of how to access supportive services on the unit if needed. Will continue to monitor patient's response to benzodiazepine taper and medications, monitor for medication side effects, and evaluate patient safety, resolution of suicidal ideation, and discharge readiness. When prepared for discharge patient states he would like to resume outpatient behavioral health services through [facility] for psychotherapy and medication management. Patient has been provided with TLS housing and casemanagement services and referral has been initiated. MANAGEMENT PLAN: Continue Klonopin taper, reduce Klonopin to 1 mg po daily at 16 :00. Continue Seroquel 50 mg po hs, Effexor XR 150 mg po q am, and Abilify 2 mg po q am. Initiate hydroxyzine 50 mg po q 6 hours PRN anxiety. Pain management consult requested to evaluate patient's use of Lyrica Maintain safety precautions Patient to attend groups and participate in unit programming to develop coping strategies Engage patient in discharge planning process and arrange meeting with support system to ensure safe discharge planning when appropriate Patient to follow up with PCM upon discharge TIME SPENT: 35 minutes. Vital Signs Vital Signs Date Time Temp Pulse Resp B/P Pulse Ox O2 Delivery O2 Flow Rate FiO2 08/06/16 06:00 98.6 60 18 118/70 07/31/16 17:04 96 Room Air Current Medications Current Medications Acetaminophen (Tylenol Tab) 650 mg Q6HP PRN PO HEADACHE or DISCOMFORT Last administered on 08/06/16 14:26; Start 07/31/16 at 18:45; Stop 08/30/16 at 18:44 Al Hydrox/Mg Hydrox/Simethicone (Mylanta) 30 ml Q4HP PRN PO HEARTBURN/ INDIGESTION; Start 07/31/16 at 18:45; Stop 08/30/16 at 18:44 Albuterol Sulfate (Proventil, Ventolin Hfa) 2 puff Q6HP PRN INH SHORTNESS OF BREATH; Start 07/31/16 at 18:45; Stop 08/30/16 at 18:44 Alprazolam (Xanax) 0.5 mg QID PO Last administered on 08/01/16 22:18; Start at 21:00; Stop 08/01/16 at 22:00; Status DC Alprazolam (Xanax) 0.5 mg QID PO ; Start 08/01/16 at 22:00; Stop 08/01/16 at 22: 00; Status DC Alprazolam (Xanax) 0.5 mg QID PO Last administered on 08/01/16 17:24; Start at 21:00; Stop 08/01/16 at 18:53; Status DC Aripiprazole (AbiLIFY) 2 mg DAILY PO Last administered on 08/06/16 08:31; Start 08/01/16 at 09:00; Stop 08/31/16 at 08:59 Budesonide/ Formoterol Fumarate (Symbicort 160/ 4.5mcg) 2 puff BID INH Last administered on 08/06/16 08:31; Start 07/31/16 at 21:00; Stop 08/30/16 at 20:59 Celecoxib (CeleBREX) 200 mg DAILY PO Last administered on 08/06/16 08:31; Start 08/01/16 at 09:00; Stop 08/31/16 at 08:59 Chlordiazepoxide (Librium) 25 mg TID PO ; Start 08/02/16 at 09:00; Stop at 09:00; Status DC Chlordiazepoxide (Librium) 25 mg TID PRN PO BENZO WITHDRAWAL; Start 08/01/16 at 19:15; Stop 08/01/16 at 19:48; Status DC Clonazepam (KlonoPIN) 1 mg BID PO Last administered on 08/06/16 08:31; Start 08/06/16 at 09:00; Stop 08/06/16 at 21:00 Clonazepam (KlonoPIN) 1 mg DAILY@16 PO ; Start 08/07/16 at 16:00; Stop 08/14/16 at 15:59 Clonazepam (KlonoPIN) 1 mg QID PO Last administered on 08/04/16 12:29; Start 08/02/16 at 09:00; Stop 08/04/16 at 15:13; Status DC Clonazepam (KlonoPIN) 1 mg TID PO Last administered on 08/05/16 21:07; Start 08/04/16 at 21:00; Stop 08/05/16 at 21:00; Status DC Famotidine (Pepcid) 20 mg QHS PO Last administered on 08/05/16 21:07; Start at 21:00; Stop 08/30/16 at 20:59 Home Med (Med Rec Complete!) ASDIRECTED XX ; Start 07/31/16 at 16:30; Stop at 16:30; Status DC Hydroxyzine HCl (Atarax) 50 mg Q6HP PRN PO ANXIETY; Start 08/07/16 at 09:00; Stop 09/06/16 at 08:59 Magnesium Hydroxide (Milk Of Magnesia) 30 ml DAILYPRN PRN PO CONSTIPATION; Start 07/31/16 at 18:45; Stop 08/30/16 at 18:44 Multivitamins (Theragram-M) 1 tab DAILY PO Last administered on 08/06/16 08:30 ; Start 08/01/16 at 09:00; Stop 08/31/16 at 08:59 Nicotine (Nicoderm Cq 21mg) 1 patch DAILY TD Last administered on 08/06/16 08: 33; Start 08/01/16 at 09:00; Stop 08/31/16 at 08:59 Pregabalin (Lyrica) 50 mg TID PO Last administered on 08/06/16 15:41; Start at 21:00; Stop 08/07/16 at 20:59 Quetiapine Fumarate (SEROquel) 50 mg QHS PO Last administered on 08/05/16 21: 07; Start 08/03/16 at 21:00; Stop 09/02/16 at 20:59 Venlafaxine HCl (Effexor Xr) 150 mg DAILY PO Last administered on 08:30; Start 08/01/16 at 09:00; Stop 08/31/16 at 08:59 Venlafaxine HCl (Effexor) 150 mg DAILY PO ; Start 08/01/16 at 09:00; Stop at 09:00; Status DC Zolpidem Tartrate (Ambien) 10 mg QHSP PRN PO INSOMNIA Last administered on 08/02 21:04; Start 07/31/16 at 18:45; Stop 08/02/16 at 22:14; Status DC Allergies Coded Allergies: No Known Allergies (Unverified , 07/31/16) Jyoti Shine Aug 06, 2016 18:58
[2016-08-06] MEDS: FAMOTIDINE 20 MG TAB PO SCH (21:05)
[2016-08-06] MEDS: QUEtiapine FUMARATE 50 MG TAB PO SCH (21:05)
[2016-08-07 06:22] VITALS: BP 119/70
[2016-08-07] MEDS: ARIPiprazole 2 MG TAB PO SCH (08:27)
[2016-08-07] MEDS: VENLAFAXINE **XR** 75MG CAPSULE PO SCH (08:27)
[2016-08-07] MEDS: CelecoXIB (CeleBREX) 100 MG CAP PO SCH (08:27)
[2016-08-07] MEDS: NICOTINE 21MG/24HR 1 EA TRANSDERMAL TD SCH (08:27)
[2016-08-07] MEDS: SYMBICORT 160/4.5MCG INHALER 6GM INH SCH ×2 (08:27→20:45)
[2016-08-07] MEDS: PREGABALIN 50 MG CAP (LYRICA) PO SCH ×3 (08:28→20:44)
[2016-08-07] MEDS: MULTIVITAMINS/MINERALS THERAP 1 TAB PO SCH (08:28)
[2016-08-07] MEDS ORDERED: hydrOXYzine 50 MG TAB PO PRN (09:00)
[2016-08-07] MEDS: ACETAMINOPHEN TAB 650MG DOSE (2X325MG) PO PRN (12:58)
[2016-08-07] MEDS ORDERED: clonazePAM 1 MG TAB PO SCH (16:00)
[2016-08-07 18:00] VITALS: BP 155/92
--- NOTE | 2016-08-07 18:14 | IPNPDOC ---
[facility] Progress Note Progress Note DATE OF SERVICE: 08/07/16 HISTORY: Patient is voluntary admission, indicates he has had intermittent suicidal ideation since 2008 and has been struggling with depression and anxiety since 1990, notes symptoms were exacerbated by son's last week, recently observed anniversary of son's birthday. Patient has notable history of medication noncompliance. Weekend provider changed Ambien to Seroquel for sleep, patient indicates that change remains effective and prefers Seroquel. Xanax has been changed to Klonopin with taper in place and patient indicates taper is going well, denies symptoms of craving or withdrawal and remains in agreement with taper. Pain management consult has been rescheduled for later today to evaluate patient's use of Lyrica. Patient indicates rest of current medication regimen remains effective and denies medication side effects. Patient reports reduced anxiety level of 4/10, and reduced depression 5 /10, denies suicidal and homicidal ideation, denies audiovisual hallucinations, denies urge to engage in self-injurious behavior. Patient reports reduced irritability and impulsivity, states he feels his mood is level, and notes he feels he is developing effective coping mechanisms to deal with loss of son. Patient remains in communication with his ex- over the phone over and states he feels communication has been positive. Patient continues to process symptoms of grief and bereavement, has been visible on the unit, attending groups, and indicates unit programming remains helpful in the development of coping mechanisms. Patient indicates energy level is improving, reports ongoing challenges with concentration and focus, indicates appetite is improving, adds he has been sleeping "great" with Seroquel. Patient presents with no signs of acute distress at time of interaction. VITAL SIGNS: See below. NEW TEST RESULTS: No new results. Labs on admission indicated elevated MCV, MCH , AST, TSH. TSH recheck on 08/02/16 remains elevated, subclinical, PA has evaluated and is recommending outpatient follow up post discharge. Impaired fasting glucose, GERD, asthma, peripheral neuropathy, chronic low back pain, history of prostate cancer with prostatectomy, right inguinal hernia, vasectomy. UDS positive for benzodiazepines on admission 08/01/16 EKG SINUS RHYTHM NO PRIOR CURRENT MEDICATIONS: See below. MENTAL STATUS EXAMINATION: Patient is a 56-year-old male, father of 2 children, 1 recently , presents with improved personal hygiene, is dressed in own clothing, makes improved eye contact, ambulates with steady gait , appears stated age. Speech: Is of normal rate, rhythm, volume, spontaneous, coherent. Language skills are intact. Thought processes: Clear, goal-directed. Thought content: Rational, logical. Abstract reasoning: Appears intact Description of associations: No tangentiality, associations intact Description of abnormal or psychotic thoughts: denies hallucinations, delusions , preoccupation with violence, homicidal or suicidal ideation, and obsessions. Judgment: Adequate Insight: Fair, continues to improve Orientation to time, place and person. Recent and remote memory: Appears intact Attention span and concentration: Limited. Language: Within normal limits. Fund of knowledge: Appears adequate. Mood: "I'm getting better I think, I'm still grieving but I'm coping with it." Patient appears less depressed, less anxious, no mood lability noted. Affect: Constricted, brightens 1, congruent with affect. DIAGNOSES: Major depressive disorder, recurrent, moderate, bereavement, rule out bipolar disorder, rule out ashley, rule out PTSD ASSESSMENT: Patient has adjusted to unit, remains visible, is attending groups, and interacts with select peers, and has been effectively utilizing unit programming to help him develop coping mechanisms to deal with recent loss of son and other social stressors leading to patient's current hospitalization. Patient remains satisfied with recent changes to medications and remains in agreement with Klonopin taper, denies any symptoms of the discomfort, craving or withdrawal related to taper and denies medication side effects. Patient denies suicidal and homicidal ideation and verbalizes awareness of how to access supportive services on the unit if needed. Will continue to monitor patient's response to benzodiazepine taper and medications, monitor for medication side effects, and evaluate patient safety, resolution of suicidal ideation, and discharge readiness. 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 Patient has been provided with TLS housing and casemanagement services and referral has been initiated. MANAGEMENT PLAN: Continue Klonopin taper, continue Klonopin 1 mg po daily at 16: 00 through tomorrow at 1600, then stop. Continue Seroquel 50 mg po hs, Effexor XR 150 mg po q am, and Abilify 2 mg po q am. Continue hydroxyzine 50 mg po q 6 hours PRN anxiety. Pain management consult scheduled for later date of entry to evaluate patient's use of Lyrica Maintain safety precautions Patient to attend groups and participate in unit programming to develop coping strategies Engage patient in discharge planning process and arrange meeting with support system to ensure safe discharge planning when appropriate Patient to follow up with PCM upon discharge TIME SPENT: 35 minutes. Vital Signs Vital Signs Date Time Temp Pulse Resp B/P Pulse Ox O2 Delivery O2 Flow Rate FiO2 08/07/16 06:22 98.9 62 18 119/70 Current Medications Current Medications Acetaminophen (Tylenol Tab) 650 mg Q6HP PRN PO HEADACHE or DISCOMFORT Last administered on 08/07/16 12:58; Start 07/31/16 at 18:45; Stop 08/30/16 at 18:44 Al Hydrox/Mg Hydrox/Simethicone (Mylanta) 30 ml Q4HP PRN PO HEARTBURN/ INDIGESTION; Start 07/31/16 at 18:45; Stop 08/30/16 at 18:44 Albuterol Sulfate (Proventil, Ventolin Hfa) 2 puff Q6HP PRN INH SHORTNESS OF BREATH; Start 07/31/16 at 18:45; Stop 08/30/16 at 18:44 Alprazolam (Xanax) 0.5 mg QID PO Last administered on 08/01/16 22:18; Start at 21:00; Stop 08/01/16 at 22:00; Status DC Alprazolam (Xanax) 0.5 mg QID PO ; Start 08/01/16 at 22:00; Stop 08/01/16 at 22: 00; Status DC Alprazolam (Xanax) 0.5 mg QID PO Last administered on 08/01/16 17:24; Start at 21:00; Stop 08/01/16 at 18:53; Status DC Aripiprazole (AbiLIFY) 2 mg DAILY PO Last administered on 08/07/16 08:27; Start 08/01/16 at 09:00; Stop 08/31/16 at 08:59 Budesonide/ Formoterol Fumarate (Symbicort 160/ 4.5mcg) 2 puff BID INH Last administered on 08/07/16 08:27; Start 07/31/16 at 21:00; Stop 08/30/16 at 20:59 Celecoxib (CeleBREX) 200 mg DAILY PO Last administered on 08/07/16 08:27; Start 08/01/16 at 09:00; Stop 08/31/16 at 08:59 Chlordiazepoxide (Librium) 25 mg TID PO ; Start 08/02/16 at 09:00; Stop at 09:00; Status DC Chlordiazepoxide (Librium) 25 mg TID PRN PO BENZO WITHDRAWAL; Start 08/01/16 at 19:15; Stop 08/01/16 at 19:48; Status DC Clonazepam (KlonoPIN) 1 mg BID PO Last administered on 08/06/16 21:05; Start 08/06/16 at 09:00; Stop 08/06/16 at 21:00; Status DC Clonazepam (KlonoPIN) 1 mg DAILY@16 PO Last administered on 08/07/16 15:56; Start 08/07/16 at 16:00; Stop 08/14/16 at 15:59 Clonazepam (KlonoPIN) 1 mg QID PO Last administered on 08/04/16 12:29; Start 08/02/16 at 09:00; Stop 08/04/16 at 15:13; Status DC Clonazepam (KlonoPIN) 1 mg TID PO Last administered on 08/05/16 21:07; Start 08/04/16 at 21:00; Stop 08/05/16 at 21:00; Status DC Famotidine (Pepcid) 20 mg QHS PO Last administered on 08/06/16 21:05; Start at 21:00; Stop 08/30/16 at 20:59 Home Med (Med Rec Complete!) ASDIRECTED XX ; Start 07/31/16 at 16:30; Stop at 16:30; Status DC Hydroxyzine HCl (Atarax) 50 mg Q6HP PRN PO ANXIETY; Start 08/07/16 at 09:00; Stop 09/06/16 at 08:59 Magnesium Hydroxide (Milk Of Magnesia) 30 ml DAILYPRN PRN PO CONSTIPATION; Start 07/31/16 at 18:45; Stop 08/30/16 at 18:44 Multivitamins (Theragram-M) 1 tab DAILY PO Last administered on 08/07/16 08:28 ; Start 08/01/16 at 09:00; Stop 08/31/16 at 08:59 Nicotine (Nicoderm Cq 21mg) 1 patch DAILY TD Last administered on 08/07/16 08: 27; Start 08/01/16 at 09:00; Stop 08/31/16 at 08:59 Pregabalin (Lyrica) 50 mg TID PO Last administered on 08/07/16 15:56; Start at 21:00; Stop 08/14/16 at 20:59 Quetiapine Fumarate (SEROquel) 50 mg QHS PO Last administered on 08/06/16 21: 05; Start 08/03/16 at 21:00; Stop 09/02/16 at 20:59 Venlafaxine HCl (Effexor Xr) 150 mg DAILY PO Last administered on 08:27; Start 08/01/16 at 09:00; Stop 08/31/16 at 08:59 Venlafaxine HCl (Effexor) 150 mg DAILY PO ; Start 08/01/16 at 09:00; Stop at 09:00; Status DC Zolpidem Tartrate (Ambien) 10 mg QHSP PRN PO INSOMNIA Last administered on 08/02 21:04; Start 07/31/16 at 18:45; Stop 08/02/16 at 22:14; Status DC Allergies Coded Allergies: No Known Allergies (Unverified , 07/31/16) Jyoti Shine Aug 07, 2016 18:14
--- NOTE | 2016-08-07 19:27 | CR.PDOC ---
[facility] Pain Clinic Consultation General Date of Consultation: 08/07/16 Consultation Report For: Shonna Hobbs Chief Complaint The patient is a 56-year-old male admitted with a reason for visit of Unspecified Depressive Disorder. Pain management is asked to see this gentleman for low back and neuropathic pain. History of Present Illness Richard Montiel is a 56-year-old gentleman who has been experiencing low back and bilateral lower extremity pain for at least the last 5 years he is also now been noting numbness and tingling in his fingers which has progressed from the tips to the palms over the last 3 years. Rarely is following with Dr. Sommers as well as with Dr. Kim at [facility] neurology. He did have MRI studies done of his neck and low back and Dr. Kim has made a referral for him to [facility] for for a surgical evaluation. He reports that his medications are generally helpful in keeping the pain under control. He states that he is taking Celebrex 200 mg Tylenol and was recently started on Lyrica at 50 mg twice a day. He reports he was previously on gabapentin and this did not provide him with much of relief of the numbness tingling and discomfort rates his pain level today as a 5-7/10 and states that this is manageable. Denies any loss of bowel or bladder control. Home Medications Scheduled Alprazolam (Alprazolam) 0.5 Mg Tab 0.5 MG PO QID (Reported) Aripiprazole (Abilify) 2 Mg Tab 2 MG PO DAILY (Reported) Budesonide/Formoterol (Symbicort 160-4.5 Mcg/Act) 60 Puff/Inhaler Aers 2 PUFF INH BID (Reported) Celecoxib (Celebrex) 200 Mg Cap 200 MG PO DAILY (Reported) Multivitamins *[facility] STOCKED* (Thera M Plus *[facility] STOCKED*) 1 Tab Tab 1 TAB PO DAILY (Reported) Pregabalin (Lyrica) 50 Mg Cap 50 MG PO TID (Reported) Venlafaxine Hydrochloride (Venlafaxine HCl ER) 150 Mg Cap 150 MG PO DAILY ( Reported) Scheduled PRN Albuterol Sulfate (Ventolin Hfa) 200 Puff/8 Gm Aers 2 PUFF INH QID PRN PRN SHORTNESS OF BREATH (Reported) Ranitidine HCl (Ranitidine HCl) 150 Mg Tab 1 TAB PO DAILY PRN PRN HEARTBURN/ INDIGESTION (Reported) Zolpidem Tartrate (Ambien) 10 Mg Tab 10 MG PO QHS PRN PRN SLEEP (Reported) Allergies Coded Allergies: No Known Allergies (Unverified , 07/31/16) Past Medical History Medical History Status post prostate cancer and surgical intervention follows with urology with recent PSA less than 1. Reports that he is prediabetic and states that he has been told that his thyroid levels were slightly increased. Does report that he did have a previous problem with alcohol intake Family History Family History Denies any family history of peripheral neuropathy Social History Social History Tobacco one pack per day. History of heroin use with overdose. Previous history of alcohol abuse. Review of Systems Subjective Constitutional: Reports: fatigue, Denies: unexplained weight loss HEENT: Denies: head aches, hearing problems, vision problems Skin: Denies: breakdown, lesions, rash Pulmonary: Denies: cough, dyspnea Cardiovascular: Denies: chest pain, edema, palpitations Gastrointestinal: Denies: loss of bowel control Genitourinary: Denies: dysuria, hematuria, loss of bladder control Hematologic: Denies: blood dyscrasias, easy bleeding, easy bruising Endocrine: Reports: Diabetes mellitus (prediabetes), Thyroid dysfunction ( elevated TSH) Musculoskeletal: Reports: leg pain Neurological: Reports: parestesias (in bilateral lower extremities to the mid thigh, and bilateral upper extremities fingertips to mid palm) Psych: Reports: anxiety Physical Examination Physical Examination Vital Signs/I&O Vital Signs Date Time Temp Pulse Resp B/P Pulse Ox O2 Delivery O2 Flow Rate FiO2 08/07/16 18:00 98.4 84 18 155/92 General Exam: Positive: alert, attentive, no acute distress, oriented times three, talkative ENT EXAM: Positive: normocephalic Neck Exam: Negative: Lymphadenopathy, Thyromegaly Chest Exam: Positive: Clear to auscultation, Negative: Rales, Wheezing Heart Exam: Positive: Normal S1, S2, Regular rate and rhythm, Negative: Murmurs, Rubs Abdominal Exam: Positive: Nondistended, Normal bowel sounds, Soft Extremity Exam: Positive: Normal pulses, Negative: Edema Skin Exam: Positive: Dry, Warm, Negative: Lesions, Rashes Neuro Exam: Positive: Muscle Strength U/L Ext., Normal Tone, Other (DTRs trace to 1+ bilateral upper and lower extremities. Increased muscle tone noted right upper extremity. Decreased sensation in a stocking glove fashion from foot to knee bilateral lower extremities and fingertips to PIP joints bilateral upper extremities) Inspection of spine Mild tenderness with palpation over lumbar spinous processes across the lumbosacral axis. Rises easily to a standing position. Posture is upright gait is somewhat stepping in nature. Assessment 1. Chronic low back pain to be evaluated for surgical intervention at [facility]. 2. Bilateral upper and lower extremity neuropathy of uncertain etiology. Recommendation and Plan Mr. Montiel has been started on Lyrica at 50 mg for last 3-4 weeks. It certainly would be reasonable to increase his dose to 75 or 100 mg twice a day or 3 times a day. He notes that he is doing well with his other medications and is not interested in making any changes. I did recommend that he attend a yoga classes. We did discuss some potential causes for neuropathy including alcohol use, thyroid dysfunction, and diabetes. I did also discuss with him that the neuropathy may be idiopathic in nature. He will follow up with this with Dr. Garcia and Dr. Nassar. Thank you, Ms. Hobbs . for allowing us to participate in the care of your patient, Richard Montiel. Should you have any questions we'll be glad to discuss this with you at any time please contact us here at the pain center at [phone]. Maki Argueta Aug 07, 2016 19:27
[2016-08-07] MEDS: QUEtiapine FUMARATE 50 MG TAB PO SCH (20:44)
[2016-08-07] MEDS: FAMOTIDINE 20 MG TAB PO SCH (20:44)
[2016-08-08 06:22] VITALS: BP 136/86
[2016-08-08] MEDS: MULTIVITAMINS/MINERALS THERAP 1 TAB PO SCH (08:16)
[2016-08-08] MEDS: VENLAFAXINE **XR** 75MG CAPSULE PO SCH (08:16)
[2016-08-08] MEDS: CelecoXIB (CeleBREX) 100 MG CAP PO SCH (08:16)
[2016-08-08] MEDS: PREGABALIN 50 MG CAP (LYRICA) PO SCH ×3 (08:16→21:19)
[2016-08-08] MEDS: ARIPiprazole 2 MG TAB PO SCH (08:16)
[2016-08-08] MEDS: NICOTINE 21MG/24HR 1 EA TRANSDERMAL TD SCH (08:16)
[2016-08-08] MEDS: SYMBICORT 160/4.5MCG INHALER 6GM INH SCH ×2 (08:16→21:20)
[2016-08-08] MEDS ORDERED: clonazePAM 1 MG TAB PO SCH ×2 (16:00→17:00)
[2016-08-08 18:00] VITALS: BP 132/81
--- NOTE | 2016-08-08 20:07 | IPNPDOC ---
[facility] Progress Note Progress Note DATE OF SERVICE: 08/08/16 HISTORY: Patient is voluntary admission, indicates he has had intermittent suicidal ideation since 2008 and has been struggling with depression and anxiety since 1990, notes symptoms were exacerbated by son's last week, recently observed anniversary of son's birthday. Patient has notable history of medication noncompliance. Patient indicates that Seroquel for sleep remains effective. Xanax has been changed to Klonopin and taper has been completed as of this afternoon. Patient states he is feeling well, denies symptoms of craving or withdrawal, remains aware he has hydroxyzine available to him if needed. Pain management consult occurred yesterday with recommendations made, PA will be asked to evaluate. Patient indicates current medication regimen remains effective and denies medication side effects. Patient reports reduced anxiety level of 2/10, and reduced depression 4/10, denies suicidal and homicidal ideation, denies audiovisual hallucinations, denies urge to engage in self-injurious behavior. Patient reports reduced irritability and impulsivity, states he feels his mood is level, and notes he feels he is developing effective coping mechanisms to deal with recent of son and other social stressors. Patient remains in communication with his parents and ex- over the phone over and states he feels communication has been positive. Patient continues to process symptoms of grief and bereavement, has been visible on the unit, attending groups, and indicates unit programming remains helpful in the development of coping mechanisms. Patient reports "good" energy level, states today he feels his concentration and focus are improving noting he feels "clear," states appetite continues to improve, and he is sleeping well, denies nightmares symptoms. Patient presents with no signs of acute distress at time of interaction. VITAL SIGNS: See below. NEW TEST RESULTS: No new results. Labs on admission indicated elevated MCV, MCH , AST, TSH. TSH recheck on 08/02/16 remains elevated, subclinical, PA has evaluated and is recommending outpatient follow up post discharge. Impaired fasting glucose, GERD, asthma, peripheral neuropathy, chronic low back pain, history of prostate cancer with prostatectomy, right inguinal hernia, vasectomy. UDS positive for benzodiazepines on admission 08/01/16 EKG SINUS RHYTHM NO PRIOR CURRENT MEDICATIONS: See below. MENTAL STATUS EXAMINATION: Patient is a 56-year-old male, father of 2 children, 1 recently , presents with improved personal hygiene, is dressed in own clothing, makes improved eye contact, ambulates with steady gait , appears stated age. Speech: Is of normal rate, rhythm, volume, spontaneous, coherent. Language skills are intact. Thought processes: Clear, goal-directed. Thought content: Rational, logical. Abstract reasoning: Appears intact Description of associations: No tangentiality, associations intact Description of abnormal or psychotic thoughts: denies hallucinations, delusions , preoccupation with violence, homicidal or suicidal ideation, and obsessions. Judgment: Adequate Insight: Adequate, and continues to improve Orientation to time, place and person. Recent and remote memory: Appears intact Attention span and concentration: Limited. Language: Within normal limits. Fund of knowledge: Appears adequate. Mood: "I'm feeling better and I think my thinking has improved to." Patient appears less depressed, less anxious, no mood lability noted. Affect: Full range, brightens frequently inappropriately, congruent with affect. DIAGNOSES: Major depressive disorder, recurrent, moderate, bereavement, rule out bipolar disorder, rule out ashley, rule out PTSD ASSESSMENT: Patient has adjusted to unit, remains visible, is attending groups, and interacts with select peers, and has been effectively utilizing unit programming to help him develop coping mechanisms to deal with recent loss of son and other social stressors leading to patient's current hospitalization. Patient remains satisfied with recent changes to medications and has completed Klonopin taper, denies any symptoms of the discomfort, craving or withdrawal related to taper and denies medication side effects. Patient denies suicidal and homicidal ideation and verbalizes awareness of how to access supportive services on the unit if needed. Will continue to monitor patient's response post benzodiazepine taper and to other medications, monitor for medication side effects, and evaluate patient safety, resolution of suicidal ideation, and discharge readiness. Credit Card Interviewer and patient discussed discharge again today and patient remains comfortable with discharge plan for Thursday at which time he will resume outpatient behavioral health services through [facility] for psychotherapy and medication management. Patient has been provided with TLS housing and casemanagement services and referral has been initiated. Patient indicates he already has outpatient appointment scheduled with PCM on Thursday , 08/13/16, and is pursuing pain management follow-up through orthopedist. MANAGEMENT PLAN: Discontinue Klonopin. Continue Seroquel 50 mg po hs, Effexor XR 150 mg po q am, and Abilify 2 mg po q am. Continue hydroxyzine 50 mg po q 6 hours PRN anxiety. Pain management consult scheduled for later date of entry to evaluate patient's use of Lyrica Maintain safety precautions Patient to attend groups and participate in unit programming to develop coping strategies Engage patient in discharge planning process and arrange meeting with support system to ensure safe discharge planning when appropriate Patient to follow up with PCM upon discharge TIME SPENT: 35 minutes. Vital Signs Vital Signs Date Time Temp Pulse Resp B/P Pulse Ox O2 Delivery O2 Flow Rate FiO2 08/08/16 18:00 97.2 73 16 132/81 Current Medications Current Medications Acetaminophen (Tylenol Tab) 650 mg Q6HP PRN PO HEADACHE or DISCOMFORT Last administered on 08/07/16 12:58; Start 07/31/16 at 18:45; Stop 08/30/16 at 18:44 Al Hydrox/Mg Hydrox/Simethicone (Mylanta) 30 ml Q4HP PRN PO HEARTBURN/ INDIGESTION; Start 07/31/16 at 18:45; Stop 08/30/16 at 18:44 Albuterol Sulfate (Proventil, Ventolin Hfa) 2 puff Q6HP PRN INH SHORTNESS OF BREATH; Start 07/31/16 at 18:45; Stop 08/30/16 at 18:44 Alprazolam (Xanax) 0.5 mg QID PO Last administered on 08/01/16 22:18; Start at 21:00; Stop 08/01/16 at 22:00; Status DC Alprazolam (Xanax) 0.5 mg QID PO ; Start 08/01/16 at 22:00; Stop 08/01/16 at 22: 00; Status DC Alprazolam (Xanax) 0.5 mg QID PO Last administered on 08/01/16 17:24; Start at 21:00; Stop 08/01/16 at 18:53; Status DC Aripiprazole (AbiLIFY) 2 mg DAILY PO Last administered on 08/08/16 08:16; Start 08/01/16 at 09:00; Stop 08/31/16 at 08:59 Budesonide/ Formoterol Fumarate (Symbicort 160/ 4.5mcg) 2 puff BID INH Last administered on 08/08/16 08:16; Start 07/31/16 at 21:00; Stop 08/30/16 at 20:59 Celecoxib (CeleBREX) 200 mg DAILY PO Last administered on 08/08/16 08:16; Start 08/01/16 at 09:00; Stop 08/31/16 at 08:59 Chlordiazepoxide (Librium) 25 mg TID PO ; Start 08/02/16 at 09:00; Stop at 09:00; Status DC Chlordiazepoxide (Librium) 25 mg TID PRN PO BENZO WITHDRAWAL; Start 08/01/16 at 19:15; Stop 08/01/16 at 19:48; Status DC Clonazepam (KlonoPIN) 1 mg BID PO Last administered on 08/06/16 21:05; Start 08/06/16 at 09:00; Stop 08/06/16 at 21:00; Status DC Clonazepam (KlonoPIN) 1 mg DAILY@16 PO Last administered on 08/07/16 15:56; Start 08/07/16 at 16:00; Stop 08/07/16 at 18:16; Status DC Clonazepam (KlonoPIN) 1 mg DAILY@16 PO Last administered on 08/08/16 15:31; Start 08/08/16 at 16:00; Stop 08/08/16 at 17:34; Status DC Clonazepam (KlonoPIN) 1 mg DAILY@17 PO ; Start 08/08/16 at 17:00; Stop 08/08/16 at 17:00; Status DC Clonazepam (KlonoPIN) 1 mg QID PO Last administered on 08/04/16 12:29; Start 08/02/16 at 09:00; Stop 08/04/16 at 15:13; Status DC Clonazepam (KlonoPIN) 1 mg TID PO Last administered on 08/05/16 21:07; Start 08/04/16 at 21:00; Stop 08/05/16 at 21:00; Status DC Famotidine (Pepcid) 20 mg QHS PO Last administered on 08/07/16 20:44; Start at 21:00; Stop 08/30/16 at 20:59 Home Med (Med Rec Complete!) ASDIRECTED XX ; Start 07/31/16 at 16:30; Stop at 16:30; Status DC Hydroxyzine HCl (Atarax) 50 mg Q6HP PRN PO ANXIETY; Start 08/07/16 at 09:00; Stop 09/06/16 at 08:59 Magnesium Hydroxide (Milk Of Magnesia) 30 ml DAILYPRN PRN PO CONSTIPATION Last administered on 08/08/16 16:21; Start 07/31/16 at 18:45; Stop 08/30/16 at 18:44 Multivitamins (Theragram-M) 1 tab DAILY PO Last administered on 08/08/16 08:16 ; Start 08/01/16 at 09:00; Stop 08/31/16 at 08:59 Nicotine (Nicoderm Cq 21mg) 1 patch DAILY TD Last administered on 08/08/16 08: 16; Start 08/01/16 at 09:00; Stop 08/31/16 at 08:59 Pregabalin (Lyrica) 50 mg TID PO Last administered on 08/08/16 15:31; Start at 21:00; Stop 08/14/16 at 20:59 Quetiapine Fumarate (SEROquel) 50 mg QHS PO Last administered on 08/07/16 20: 44; Start 08/03/16 at 21:00; Stop 09/02/16 at 20:59 Venlafaxine HCl (Effexor Xr) 150 mg DAILY PO Last administered on 08:16; Start 08/01/16 at 09:00; Stop 08/31/16 at 08:59 Venlafaxine HCl (Effexor) 150 mg DAILY PO ; Start 08/01/16 at 09:00; Stop at 09:00; Status DC Zolpidem Tartrate (Ambien) 10 mg QHSP PRN PO INSOMNIA Last administered on 08/02 21:04; Start 07/31/16 at 18:45; Stop 08/02/16 at 22:14; Status DC Allergies Coded Allergies: No Known Allergies (Unverified , 07/31/16) Jyoti Shine Aug 08, 2016 20:07
[2016-08-08] MEDS: QUEtiapine FUMARATE 50 MG TAB PO SCH (21:19)
[2016-08-08] MEDS: FAMOTIDINE 20 MG TAB PO SCH (21:20)
[2016-08-09 06:35] VITALS: BP 108/69
[2016-08-09] MEDS: VENLAFAXINE **XR** 75MG CAPSULE PO SCH (08:24)
[2016-08-09] MEDS: MULTIVITAMINS/MINERALS THERAP 1 TAB PO SCH (08:24)
[2016-08-09] MEDS: SYMBICORT 160/4.5MCG INHALER 6GM INH SCH ×2 (08:24→20:58)
[2016-08-09] MEDS: PREGABALIN 50 MG CAP (LYRICA) PO SCH ×3 (08:24→20:57)
[2016-08-09] MEDS: CelecoXIB (CeleBREX) 100 MG CAP PO SCH (08:24)
[2016-08-09] MEDS: ARIPiprazole 2 MG TAB PO SCH (08:24)
[2016-08-09] MEDS: NICOTINE 21MG/24HR 1 EA TRANSDERMAL TD SCH (08:25)
[2016-08-09 18:00] VITALS: BP 126/82
[2016-08-09] MEDS: ACETAMINOPHEN TAB 650MG DOSE (2X325MG) PO PRN (20:22)
[2016-08-09] MEDS: QUEtiapine FUMARATE 50 MG TAB PO SCH (20:57)
[2016-08-09] MEDS: FAMOTIDINE 20 MG TAB PO SCH (20:57)
[2016-08-10 06:38] VITALS: BP 120/80
[2016-08-10] MEDS: CelecoXIB (CeleBREX) 100 MG CAP PO SCH (07:59)
[2016-08-10] MEDS: NICOTINE 21MG/24HR 1 EA TRANSDERMAL TD SCH (07:59)
[2016-08-10] MEDS: SYMBICORT 160/4.5MCG INHALER 6GM INH SCH ×2 (07:59→21:24)
[2016-08-10] MEDS: ARIPiprazole 2 MG TAB PO SCH (08:00)
[2016-08-10] MEDS: VENLAFAXINE **XR** 75MG CAPSULE PO SCH (08:00)
[2016-08-10] MEDS: PREGABALIN 50 MG CAP (LYRICA) PO SCH ×3 (08:00→21:24)
[2016-08-10] MEDS: MULTIVITAMINS/MINERALS THERAP 1 TAB PO SCH (08:00)
[2016-08-10 18:00] VITALS: BP 128/77
[2016-08-10] MEDS: FAMOTIDINE 20 MG TAB PO SCH (21:24)
[2016-08-10] MEDS: QUEtiapine FUMARATE 50 MG TAB PO SCH (21:24)
[2016-08-11 06:32] VITALS: BP 115/70
[2016-08-11] MEDS ORDERED: NICO21PAT TD (08:54)
[2016-08-11] MEDS: SYMBICORT 160/4.5MCG INHALER 6GM INH SCH (08:57)
[2016-08-11] MEDS: VENLAFAXINE **XR** 75MG CAPSULE PO SCH (08:57)
[2016-08-11] MEDS: MULTIVITAMINS/MINERALS THERAP 1 TAB PO SCH (08:57)
[2016-08-11] MEDS: PREGABALIN 50 MG CAP (LYRICA) PO SCH (08:57)
[2016-08-11] MEDS: ARIPiprazole 2 MG TAB PO SCH (08:57)
[2016-08-11] MEDS: CelecoXIB (CeleBREX) 100 MG CAP PO SCH (08:57)
[2016-08-11] MEDS: NICOTINE 21MG/24HR 1 EA TRANSDERMAL TD SCH (08:58)
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
[2016-08-11] MEDS ORDERED: QUEtiapine FUMARATE 50 MG TAB PO PRN (10:17)
[2016-08-11] MEDS ORDERED: QUET5TAB PO (10:25)
[2016-08-11] MEDS: ACETAMINOPHEN TAB 650MG DOSE (2X325MG) PO PRN (12:08)
== END 2016-08-11 13:45 | disposition home or self-care (01) | DRG 751 ==
LOC: M ED 14:32 → M ED INP 16:45 → M PSY 17:02
PROVIDERS: ADMIT Psychiatry & Neurology Psychiatry; ATTEND Psychiatry & Neurology Psychiatry
DX: F33.1 Major depressive disorder, recurrent, moderate (principal); G62.9 Polyneuropathy, unspecified; R45.851 Suicidal ideations; F43.10 Post-traumatic stress disorder, unspecified; F41.1 Generalized anxiety disorder; K21.9 Gastro-esophageal reflux disease without esophagitis; F17.210 Nicotine dependence, cigarettes, uncomplicated; M54.5 Low back pain; R73.01 Impaired fasting glucose; J45.909 Unspecified asthma, uncomplicated; F10.21 Alcohol dependence, in remission; R94.6 Abnormal results of thyroid function studies; R74.0 Nonspecific elevation of levels of transaminase and lactic acid dehydrogenase [LDH]; Z63.4 Disappearance and death of family member; Z79.899 Other long term (current) drug therapy; Z91.5 Personal history of self-harm; Z85.46 Personal history of malignant neoplasm of prostate; Z90.79 Acquired absence of other genital organ(s); Z83.3 Family history of diabetes mellitus; Z82.49 Family history of ischemic heart disease and other diseases of the circulatory system

== ENCOUNTER → 2016-08-12 | Outpatient (REF) | payer MEDICAID ==
[~2016-08-12] MED LIST: ABIL2TAB2 PO; ALBU17IN; ALBU17IN INH; ALPR0.5T3 PO; ALPRTAB4; AMBI10TA PO; ARIP2TAB; CELE-19 PO; CELE1CAP9; NICO21PAT TD; PENC1CR; PREG50CA; PREG50CA PO; QUET5TAB PO; RANI150T PO; RANI1TAB6; SYMB16INH; SYMB16INH INH; VENL150C43; VENL150C43 PO; VITMTA PO; ZOLP10TA2
[2016-08-13 11:59] LABS: ALBUMIN/GLOBULIN RATIO 1.18 (1.00-1.93); ALKALINE PHOSPHATASE 87 U/L (45-117); ALT/SGPT 35 U/L (12-78); ANION GAP 11 MEQ/L (8-16); AST/SGOT 25 U/L (15-37); BILIRUBIN,TOTAL 0.2 MG/DL (0.2-1.0); BLOOD UREA NITROGEN 13 MG/DL (7-18); CALCIUM LEVEL 9.3 MG/DL (8.5-10.1); CARBON DIOXIDE LEVEL 27 MEQ/L (21-32); CHLORIDE LEVEL 103 MEQ/L (98-107); CHOLESTEROL LEVEL 168 MG/DL (<200); CREATININE FOR GFR 0.94 MG/DL (0.70-1.30); GLOMERULAR FILTRATION RATE > 60.0 (>56); GLUCOSE, FASTING 99 MG/DL (70-105); SODIUM LEVEL 141 MEQ/L (136-145); THYROXINE (T4) 7.7 UG/DL (4.5-12.0); TOTAL PROTEIN 7.4 GM/DL (6.4-8.2); TRIGLYCERIDES LEVEL 298 MG/DL (<150)
== END ==
LOC: M SFHCCLAY 15:03
PROVIDERS: ATTEND Family Medicine
DX: R73.01 Impaired fasting glucose (principal); R94.6 Abnormal results of thyroid function studies

== ENCOUNTER 2016-11-12 13:06 | Emergency (ER) | payer MEDICAID, OTHER ==
[~2016-11-12] VITALS: Ht 162.6 cm; Wt 79.1 kg
[~2016-11-12 13:06] MED LIST changes: +ABIL1TAB13 PO; -ABIL2TAB2 PO; -CELE-19 PO; +CELE1CAP4 PO
[2016-11-12] MEDS ORDERED: ALPR0.5T3 (13:17)
--- NOTE | 2016-11-12 14:59 | REP ---
Right ribs four views: There is no rib fracture or other rib abnormality. I suspect there is a small right pleural effusion. PA chest: There are no comparisons. There is no pneumothorax. I suspect there is a small right pleural effusion. There is no pulmonary contusion. Left lung is clear. Cardiac size is normal. The bret, mediastinum, bony thorax are unremarkable. Impression: Small right pleural effusion. Signed by Tommie Chang MD 11/12/2016 02:50 P
[2016-11-12] MEDS ORDERED: CYCL10TA PO (15:00)
[2016-11-12 15:06] VITALS: BP 130/78
== END 2016-11-12 15:27 | disposition home or self-care (01) ==
LOC: M ED 15:22
DX: S20.211A Contusion of right front wall of thorax, initial encounter (principal); W18.09XA Striking against other object with subsequent fall, initial encounter; Y92.019 Unspecified place in single-family (private) house as the place of occurrence of the external cause; Y93.89 Activity, other specified; Y99.8 Other external cause status; J45.909 Unspecified asthma, uncomplicated; Z85.46 Personal history of malignant neoplasm of prostate; Z90.79 Acquired absence of other genital organ(s); Z79.51 Long term (current) use of inhaled steroids; Z79.899 Other long term (current) drug therapy

== ENCOUNTER → 2017-07-21 | Outpatient (CLI) | payer OTHER, MEDICAID ==
[2017-07-21 14:20] LABS: ESTIMATED AVERAGE GLUCOSE 108 MG/DL (60-110); HEMOGLOBIN A1c 5.4 %
[2017-07-21 14:31] LABS: ALBUMIN 3.6 GM/DL (3.2-5.2); ALBUMIN/GLOBULIN RATIO 1.09 (1.00-1.93); ALKALINE PHOSPHATASE 73 U/L (45-117); ALT/SGPT 40 U/L (12-78); ANION GAP 10 MEQ/L (8-16); AST/SGOT 40 U/L (7-37); BILIRUBIN,TOTAL 0.2 MG/DL (0.2-1.0); BLOOD UREA NITROGEN 8 MG/DL (7-18); CALCIUM LEVEL 8.4 MG/DL (8.5-10.1); CARBON DIOXIDE LEVEL 26 MEQ/L (21-32); CHLORIDE LEVEL 104 MEQ/L (98-107); CHOLESTEROL LEVEL 189 MG/DL (<200); CREATININE FOR GFR 0.89 MG/DL (0.70-1.30); GLOMERULAR FILTRATION RATE > 60.0 (>56); GLUCOSE, FASTING 128 MG/DL (70-100); HDL CHOLESTEROL 45 MG/DL (>40); NON-HDL-C 144 MG/DL; POTASSIUM SERUM 3.9 MEQ/L (3.5-5.1); PROSTATIC SPECIFIC AG MONITOR < 0.01 NG/ML (< 4.0); SODIUM LEVEL 140 MEQ/L (136-145); TOTAL PROTEIN 6.9 GM/DL (6.4-8.2); TRIGLYCERIDES LEVEL 175 MG/DL (<150)
== END ==
LOC: M LAB 13:13
DX: R73.01 Impaired fasting glucose (principal); E03.9 Hypothyroidism, unspecified; Z85.46 Personal history of malignant neoplasm of prostate
CPT/HCPCS: 84443

== ENCOUNTER → 2017-10-21 | Outpatient (CLI) | payer OTHER | LOC: M RAD 10:29 | DX: M19.049 Primary osteoarthritis, unspecified hand (principal) | CPT/HCPCS: 73130 ==

== ENCOUNTER → 2017-12-15 | Outpatient (CLI) | payer OTHER ==
[2017-12-15 17:46] LABS: ALBUMIN 3.6 GM/DL (3.2-5.2); ALBUMIN/GLOBULIN RATIO 1.09 (1.00-1.93); ALKALINE PHOSPHATASE 78 U/L (45-117); ALT/SGPT 58 U/L (12-78); ANION GAP 10 MEQ/L (8-16); AST/SGOT 44 U/L (7-37); BILIRUBIN,TOTAL 0.2 MG/DL (0.2-1.0); BLOOD UREA NITROGEN 8 MG/DL (7-18); CALCIUM LEVEL 8.8 MG/DL (8.5-10.1); CARBON DIOXIDE LEVEL 26 MEQ/L (21-32); CHLORIDE LEVEL 108 MEQ/L (98-107); CREATININE FOR GFR 0.86 MG/DL (0.70-1.30); GLOMERULAR FILTRATION RATE > 60.0 (>56); GLUCOSE, FASTING 86 MG/DL (70-100); POTASSIUM SERUM 4.3 MEQ/L (3.5-5.1); SODIUM LEVEL 144 MEQ/L (136-145); TOTAL PROTEIN 6.9 GM/DL (6.4-8.2)
== END ==
LOC: M SMT 11:20
DX: I10 Essential (primary) hypertension (principal)
CPT/HCPCS: 80053

== ENCOUNTER → 2017-12-15 | Outpatient (REF) | LOC: M SMT 10:57 | DX: Z00.00 Encounter for general adult medical examination without abnormal findings (principal) ==

== ENCOUNTER 2017-12-29 19:53 | Emergency (ER) | payer OTHER ==
[2017-12-29] MEDS: NS 1,000 ML IV (20:45)
[2017-12-29 20:54] LABS: BASO # 0.1 10^3/uL (0.0-0.2); EOS # 0.2 10^3/uL (0.0-0.50); EOS % 2.1 % (0.0-3.0); HEMATOCRIT 43.1 % (42.0-52.0); HEMOGLOBIN 14.1 g/dl (13.5-17.5); IMMATURE GRANULOCYTE % 1.7 % (0-3.0); LYMPH # 4.2 10^3/uL (1.5-4.5); LYMPH % 41.3 % (24.0-44.0); MEAN CORPUSCULAR HEMOGLOBIN 33.2 pg (27.0-33.0); MEAN CORPUSCULAR HGB CONC 32.7 g/dl (32.0-36.5); MEAN CORPUSCULAR VOLUME 101.4 fl (80.0-96.0); MONO % 10.2 % (0.0-5.0); NEUTROPHILS # 4.5 10^3/uL (1.8-7.7); NEUTROPHILS % 43.7 % (36.0-66.0); PLATELET COUNT, AUTOMATED 265 10^3/uL (150-450); RED BLOOD COUNT 4.25 10^6/uL (4.30-6.10); RED CELL DISTRIBUTION WIDTH 14.2 % (11.5-14.5); WHITE BLOOD COUNT 10.2 10^3/uL (4.0-10.0)
[2017-12-29 21:05] LABS: ALBUMIN 3.4 GM/DL (3.2-5.2); ALKALINE PHOSPHATASE 91 U/L (45-117); ALT/SGPT 48 U/L (12-78); ANION GAP 15 MEQ/L (8-16); AST/SGOT 36 U/L (7-37); BILIRUBIN,DIRECT < 0.1 MG/DL (0.0-0.2); BILIRUBIN,TOTAL 0.2 MG/DL (0.2-1.0); BLOOD UREA NITROGEN 8 MG/DL (7-18); CALCIUM LEVEL 8.5 MG/DL (8.5-10.1); CARBON DIOXIDE LEVEL 21 MEQ/L (21-32); CHLORIDE LEVEL 107 MEQ/L (98-107); CPK CREATINE PHOSPHOKINASE 224 U/L (39-308); CREATININE FOR GFR 1.42 MG/DL (0.70-1.30); ETHYL ALCOHOL (ETHANOL) 0.286 % (0.000-0.010); FREE T4 0.88 NG/DL (0.76-1.46); GLOMERULAR FILTRATION RATE 54.5 (>56); GLUCOSE, FASTING 101 MG/DL (70-100); SALICYLATE LEVEL < 1.7 MG/DL (5.0-30.0); SODIUM LEVEL 143 MEQ/L (136-145); TOTAL PROTEIN 6.8 GM/DL (6.4-8.2); TROPONIN I 0.02 NG/ML (< 0.10)
[2017-12-29 21:10] LABS: ACETAMINOPHEN LEVEL 12.9 UG/ML (10.0-30.0); CK-MB VALUE MASS 6.9 NG/ML (<3.6); MB/CK RELATIVE INDEX 3.08 (< OR =4)
[2017-12-29 22:51] LABS: AMPHETAMINES LEVEL URINE NEGATIVE (NEGATIVE); BARBITURATES URINE NEGATIVE (NEGATIVE); BENZODIAZEPINES URINE POSITIVE (NEGATIVE); CANNABINOIDS URINE NEGATIVE (NEGATIVE); COCAINE METABOLITE URINE NEGATIVE (NEGATIVE); METHADONE URINE NEGATIVE (NEGATIVE); OPIATES URINE NEGATIVE (NEGATIVE); PHENCYCLIDINE URINE NEGATIVE (NEGATIVE)
== END 2017-12-29 23:31 | disposition home or self-care (01) ==
LOC: M ED 19:53
DX: F10.120 Alcohol abuse with intoxication, uncomplicated (principal); S00.91XA Abrasion of unspecified part of head, initial encounter; W19.XXXA Unspecified fall, initial encounter; Y92.89 Other specified places as the place of occurrence of the external cause; M48.02 Spinal stenosis, cervical region; I10 Essential (primary) hypertension; J45.909 Unspecified asthma, uncomplicated; R73.01 Impaired fasting glucose; F32.9 Major depressive disorder, single episode, unspecified; Z85.46 Personal history of malignant neoplasm of prostate; F19.10 Other psychoactive substance abuse, uncomplicated; Z79.899 Other long term (current) drug therapy
CPT/HCPCS: 71045

== ENCOUNTER 2018-02-03 11:10 | Emergency (ER) | payer OTHER | END 2018-02-03 15:08 | disposition home or self-care (01) | LOC: M ED 11:10 | DX: F10.129 Alcohol abuse with intoxication, unspecified (principal); S01.01XA Laceration without foreign body of scalp, initial encounter; W19.XXXA Unspecified fall, initial encounter; Y92.099 Unspecified place in other non-institutional residence as the place of occurrence of the external cause; Y93.9 Activity, unspecified; Y99.9 Unspecified external cause status; K21.9 Gastro-esophageal reflux disease without esophagitis; G89.29 Other chronic pain; M54.5 Low back pain; F19.10 Other psychoactive substance abuse, uncomplicated; Z72.0 Tobacco use; M47.812 Spondylosis without myelopathy or radiculopathy, cervical region; Z79.899 Other long term (current) drug therapy | CPT/HCPCS: 70450 ==

== ENCOUNTER 2018-02-06 14:21 | Emergency (ER) | payer OTHER ==
[2018-02-06 14:57] LABS: BEDSIDE GLUCOSE 92 MG/DL (70-105)
[2018-02-06 14:59] LABS: AMMONIA 14 uMOL/L (<32)
[2018-02-06 15:01] LABS: BASO # 0.1 10^3/uL (0.0-0.2); BASO % 0.7 % (0.0-1.0); EOS # 0.2 10^3/uL (0.0-0.50); EOS % 1.9 % (0.0-3.0); HEMATOCRIT 42.2 % (42.0-52.0); HEMOGLOBIN 13.9 g/dl (13.5-17.5); IMMATURE GRANULOCYTE % 1.1 % (0-3.0); LYMPH # 3.2 10^3/uL (1.5-4.5); LYMPH % 35.9 % (24.0-44.0); MEAN CORPUSCULAR HEMOGLOBIN 33.3 pg (27.0-33.0); MEAN CORPUSCULAR HGB CONC 32.9 g/dl (32.0-36.5); MEAN CORPUSCULAR VOLUME 101.2 fl (80.0-96.0); MONO # 0.6 10^3/uL (0.0-0.8); MONO % 6.8 % (0.0-5.0); NEUTROPHILS # 4.8 10^3/uL (1.8-7.7); NEUTROPHILS % 53.6 % (36.0-66.0); PLATELET COUNT, AUTOMATED 212 10^3/uL (150-450); RED BLOOD COUNT 4.17 10^6/uL (4.30-6.10); RED CELL DISTRIBUTION WIDTH 13.9 % (11.5-14.5)
[2018-02-06 15:07] LABS: ACETAMINOPHEN LEVEL 2.6 UG/ML (10.0-30.0); ALBUMIN 3.4 GM/DL (3.2-5.2); ALBUMIN/GLOBULIN RATIO 1.17 (1.00-1.93); ALKALINE PHOSPHATASE 102 U/L (45-117); ALT/SGPT 46 U/L (12-78); ANION GAP 12 MEQ/L (8-16); AST/SGOT 53 U/L (7-37); BILIRUBIN,DIRECT 0.1 MG/DL (0.0-0.2); BILIRUBIN,TOTAL 0.2 MG/DL (0.2-1.0); BLOOD UREA NITROGEN 7 MG/DL (7-18); CALCIUM LEVEL 8.1 MG/DL (8.5-10.1); CARBON DIOXIDE LEVEL 25 MEQ/L (21-32); CHLORIDE LEVEL 105 MEQ/L (98-107); CPK CREATINE PHOSPHOKINASE 173 U/L (39-308); CREATININE FOR GFR 0.97 MG/DL (0.70-1.30); ETHYL ALCOHOL (ETHANOL) 0.415 % (0.000-0.010); GLOMERULAR FILTRATION RATE > 60.0 (>56); GLUCOSE, FASTING 79 MG/DL (70-100); MB/CK RELATIVE INDEX 3.06 (< OR =4); POTASSIUM SERUM 4.3 MEQ/L (3.5-5.1); SALICYLATE LEVEL < 1.7 MG/DL (5.0-30.0); SODIUM LEVEL 142 MEQ/L (136-145); TOTAL PROTEIN 6.3 GM/DL (6.4-8.2); TROPONIN I < 0.02 NG/ML (< 0.10)
[2018-02-06] MEDS: NS 1,000 ML IV (15:09)
[2018-02-06 19:00] LABS: KETONE, URINE AUTO RFX TRACE mg/dL (NEGATIVE); LEUKOCYTE ESTERASE UR AUTO RFX NEGATIVE (NEGATIVE); NITRITE, URINE AUTO RFX NEGATIVE (NEGATIVE); RBC, URINE AUTO RFX 1 /HPF (0-3); SPECIFIC GRAVITY UR AUTO RFX 1.004 (1.002-1.035); SQUAM EPITHELIAL CELL UR AURFX 0 /HPF (0-6); WBC, URINE AUTO RFX 1 /HPF (0-3)
[2018-02-06 19:25] LABS: AMPHETAMINES LEVEL URINE NEGATIVE (NEGATIVE); BARBITURATES URINE NEGATIVE (NEGATIVE); BENZODIAZEPINES URINE POSITIVE (NEGATIVE); CANNABINOIDS URINE NEGATIVE (NEGATIVE); COCAINE METABOLITE URINE NEGATIVE (NEGATIVE); METHADONE URINE NEGATIVE (NEGATIVE); OPIATES URINE NEGATIVE (NEGATIVE); PHENCYCLIDINE URINE NEGATIVE (NEGATIVE)
== END 2018-02-06 23:58 | disposition home or self-care (01) ==
LOC: M ED 14:21
DX: F10.229 Alcohol dependence with intoxication, unspecified (principal); R41.82 Altered mental status, unspecified; I10 Essential (primary) hypertension; Z79.899 Other long term (current) drug therapy
CPT/HCPCS: 71045

== ENCOUNTER 2018-02-07 13:52 | Emergency (ER) | payer OTHER | END 2018-02-07 14:51 | disposition home or self-care (01) | LOC: M ED 13:52 | DX: F10.229 Alcohol dependence with intoxication, unspecified (principal); I10 Essential (primary) hypertension; J45.909 Unspecified asthma, uncomplicated; Z79.899 Other long term (current) drug therapy | CPT/HCPCS: 99283 ==

== ENCOUNTER 2018-02-10 07:31 | Emergency (ER) | payer OTHER ==
[2018-02-10] MEDS: LORazepam 2 MG TAB PO (08:01)
== END 2018-02-10 10:48 | disposition home or self-care (01) ==
LOC: M ED 07:31
DX: F10.10 Alcohol abuse, uncomplicated (principal); J44.9 Chronic obstructive pulmonary disease, unspecified; I10 Essential (primary) hypertension; E07.9 Disorder of thyroid, unspecified; F33.9 Major depressive disorder, recurrent, unspecified; Z79.899 Other long term (current) drug therapy
CPT/HCPCS: 99285